=== PATIENT | male | born 1940 | race Caucasian/White ===

== ENCOUNTER → 2023-10-05 | Emergency (ER) | payer OTHER ==
[~2023-10-05] MED LIST: DIAZEPAM 5 MG TABLET ONE; FENTANYL CITR 100 MCG/2 ML ONE; KETOROLAC 30 MG/ML INJ ONE; NA CHLORIDE 0.9% 1,000 ML ONE; NA CHLORIDE 0.9% 500 ML ONE; ONDANSETRON 4 MG/2 ML VIAL ONE; POTASSIUM 25 MEQ EFFERV TAB ONE; dexAMETHasone 10 MG/ML VIAL ONE
--- OUTSIDE RECORDS SUMMARY | 2023-10-05 11:03 | XMS REPORT | Continuity of Care Document ---
Author Name Unknown Address [address] [facility] [address] [place] [address] [facility] thconnect Address [address] [facility] [address] [place] [address] Care Team Providers Care Commercial Helicopter Pilot Name Role Phone Carly Croft Attending Clinician Unavailable SOL Attending Clinician Unavailable SHARI Attending Clinician Unavailable Bairon Velásquez Attending Clinician [phone] Carly Croft Admitting Clinician Unavailable SOL Admitting Clinician Unavailable SHARI Admitting Clinician Unavailable Payers Payer Name Policy Type Policy Number Effective Date Expirati on Date Source [employer] (MEDICARE REPLACEMENT HMO) [id number] 2020 00:00:00 Problems Condition Name Condition Details Condition Category Status Onset Date Resolution Date Last Treatment Date Treating Clinician Comments Source Benign prostatic hyperplasi a with outflow obstructio n Benign Prostatic Hyperplasi a with Outflow Obstructio n Problem Active 2- [facility]: [facility] Dependent edema Dependent Edema Problem Active 2-05 00:00: 00 [facility] Long-term drug therapy Long-term Drug Therapy Problem Active 2-02 00[facility] Type 2 diabetes mellitus Type 2 Diabetes Mellitus Problem Active 5-15 00:00: 00 [facility] 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 Problem Active 8-05 00:00: 00 [facility] 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 Problem Active 805 00:00: 00 [facility] 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 Problem Active 8-05 00:00: 00 [facility] COVID-19 Covid-19 Problem Active 7 00:00: 00 [facility] Hyperglyce sia Hyperglyce sia Problem Active 2-03 00:00: 00 [facility] Hiatal hernia Hiatal Hernia Problem Active 6 00:00: 00 [facility] Hyperchole sterolemia Hyperchole sterolemia Problem Active 208 00:00: 00 [facility] Hypertensi ve disorder Hypertensi ve Disorder Problem Active 208 00:00: 00 [facility] Coronary arterioscl erosis Coronary Arterioscl erosis Problem Active 208 00:00: 00 [facility] Gastroesop hageal reflux disease Gastroesop hageal Reflux Disease Problem Active 208 00:00: 00 [facility] History of myocardial infarction History of Myocardial Infarction Problem Active 208 00:00: 00 [facility] History of heart valve repair History of Heart Valve Repair Problem Active 208 00:00: 00 [facility] Allergies, Adverse Reactions, Alerts Allergy Name Allergy Type Status Severity Reaction(s) Onset Date Inactive Date Treating Clinician Comments Source No Known Allergie s DA Active U 12-29 00:00: 00 [facility] No Known Allergie s DA Active U 12-29 00:00: 00 [facility] Social History Smoking Status Start Date Stop Date Source Heavy Tobacco Smoker [facility] Medications Ordered Medication Name Filled Medication Name Start Date Stop Date Current Medication? Ordering Clinician Indication Dosage Frequency Signature (SIG) Comments Components Source Kenalog 40 mg/mL suspension for injectionTa ke 2 mL by injection route. Kenalog 40 mg/mL suspension for injectionTa ke 2 mL by injection route. 2022-08 11:18: 27 No Kenalog 40 mg/mL suspension for injectionT nazario 2 mL by injection route. [facility] tamsulosin 0.4 mg capsule TAKE 1 CAPSULE BY MOUTH EVERY DAY IN THE EVENING tamsulosin 0.4 mg capsule TAKE 1 CAPSULE BY MOUTH EVERY DAY IN THE EVENING 2022-08 00:00: 00 No tamsulosin 0.4 mg capsule TAKE 1 CAPSULE BY MOUTH EVERY DAY IN THE EVENING [facility] tamsulosin 0.4 mg capsule TAKE 1 CAPSULE BY MOUTH EVERY DAY IN THE EVENING tamsulosin 0.4 mg capsule TAKE 1 CAPSULE BY MOUTH EVERY DAY IN THE EVENING 2022-08 00:00: 00 No tamsulosin 0.4 mg capsule TAKE 1 CAPSULE BY MOUTH EVERY DAY IN THE EVENING [facility] tamsulosin 0.4 mg capsule TAKE 1 CAPSULE BY MOUTH EVERY DAY IN THE EVENING tamsulosin 0.4 mg capsule TAKE 1 CAPSULE BY MOUTH EVERY DAY IN THE EVENING 2022-08 00:00: 00 No tamsulosin 0.4 mg capsule TAKE 1 CAPSULE BY MOUTH EVERY DAY IN THE EVENING [facility] tamsulosin 0.4 mg capsule TAKE 1 CAPSULE BY MOUTH EVERY DAY IN THE EVENING tamsulosin 0.4 mg capsule TAKE 1 CAPSULE BY MOUTH EVERY DAY IN THE EVENING 2022-08 00:00: 00 No tamsulosin 0.4 mg capsule TAKE 1 CAPSULE BY MOUTH EVERY DAY IN THE EVENING [facility] amlodipine 2.5 mg tablet TAKE 1 TABLET BY MOUTH BID PO amlodipine 2.5 mg tablet TAKE 1 TABLET BY MOUTH BID PO 12-16 00:00: 00 No amlodipine 2.5 mg tablet TAKE 1 TABLET BY MOUTH BID PO [facility] amlodipine 5 mg tablet TAKE 1 TABLET BY MOUTH TWICE A DAY amlodipine 5 mg tablet TAKE 1 TABLET BY MOUTH TWICE A DAY 2021-0 8-10 00:00: 00 No amlodipine 5 mg tablet TAKE 1 TABLET BY MOUTH TWICE A DAY [facility] amlodipine 5 mg tablet TAKE 1 TABLET BY MOUTH TWICE A DAY amlodipine 5 mg tablet TAKE 1 TABLET BY MOUTH TWICE A DAY 8- 00:00: 00 No amlodipine 5 mg tablet TAKE 1 TABLET BY MOUTH TWICE A DAY [facility] amlodipine 2.5 mg tablet TAKE 1 TABLET BY MOUTH EVERY DAY FOR 7 DAYS amlodipine 2.5 mg tablet TAKE 1 TABLET BY MOUTH EVERY DAY FOR 7 DAYS 01-10 00:00: 00 No amlodipine 2.5 mg tablet TAKE 1 TABLET BY MOUTH EVERY DAY FOR 7 DAYS [facility] carvedilol 6.25 mg tablet TAKE 1/2 TABLET BY MOUTH TWICE A DAY WITH FOOD carvedilol 6.25 mg tablet TAKE 1/2 TABLET BY MOUTH TWICE A DAY WITH FOOD 12-13 00:00: 00 No carvedilol 6.25 mg tablet TAKE 1/2 TABLET BY MOUTH TWICE A DAY WITH FOOD [facility] amlodipine 2.5 mg tablet TAKE 1 TABLET BY MOUTH BID PO amlodipine 2.5 mg tablet TAKE 1 TABLET BY MOUTH BID PO No amlodipine 2.5 mg tablet TAKE 1 TABLET BY MOUTH BID PO [facility] atorvastati n 80 mg tablet TAKE 1 TABLET BY MOUTH EVERY DAY atorvastati n 80 mg tablet TAKE 1 TABLET BY MOUTH EVERY DAY No atorvastat in 80 mg tablet TAKE 1 TABLET BY MOUTH EVERY DAY [facility] clopidogrel 75 mg tablet TAKE 1 TABLET BY MOUTH EVERY DAY clopidogrel 75 mg tablet TAKE 1 TABLET BY MOUTH EVERY DAY No clopidogre l 75 mg tablet TAKE 1 TABLET BY MOUTH EVERY DAY [facility] Fluzone High-Dose Quad 2020-21 (PF) 240 mcg/0.7 mL IM syringe PHARMACIST ADMINISTERE D IMMUNIZATIO N ADMINISTERE D AT TIME OF DISPENSING Fluzone High-Dose Quad 2020-21 (PF) 240 mcg/0.7 mL IM syringe PHARMACIST ADMINISTERE D IMMUNIZATIO N ADMINISTERE D AT TIME OF DISPENSING No Fluzone High-Dose Quad 2020-21 (PF) 240 mcg/0.7 mL IM syringe PHARMACIST ADMINISTER ED IMMUNIZATI ON ADMINISTER ED AT TIME OF DISPENSING [facility] losartan 100 mg-hydrochl orothiazide 25 mg tablet TAKE 1 TABLET BY MOUTH EVERY DAY losartan 100 mg-hydrochl orothiazide 25 mg tablet TAKE 1 TABLET BY MOUTH EVERY DAY No losartan 100 mg-hydroch lorothiazi de 25 mg tablet TAKE 1 TABLET BY MOUTH EVERY DAY [facility] nitroglycer in 0.4 mg sublingual tablet DISSOLVE ONE TABLET UNDER THE TONGUE EVERY 5 MINUTES NEEDED FOR CHEST PAIN. DO NOT EXCEED A TOTAL OF 3 DOSES IN 15 MINUTES nitroglycer in 0.4 mg sublingual tablet DISSOLVE ONE TABLET UNDER THE TONGUE EVERY 5 MINUTES NEEDED FOR CHEST PAIN. DO NOT EXCEED A TOTAL OF 3 DOSES IN 15 MINUTES No nitroglyce rin 0.4 mg sublingual tablet DISSOLVE ONE TABLET UNDER THE TONGUE EVERY 5 MINUTES NEEDED FOR CHEST PAIN. DO NOT EXCEED A TOTAL OF 3 DOSES IN 15 MINUTES [facility] omeprazole 20 mg capsule,del ayed release TAKE 1 CAPSULE BY MOUTH ONCE DAILY omeprazole 20 mg capsule,del ayed release TAKE 1 CAPSULE BY MOUTH ONCE DAILY No omeprazole 20 mg capsule,de layed release TAKE 1 CAPSULE BY MOUTH ONCE DAILY [facility] atorvastati n 80 mg tablet TAKE 1 TABLET BY MOUTH EVERY DAY atorvastati n 80 mg tablet TAKE 1 TABLET BY MOUTH EVERY DAY No atorvastat in 80 mg tablet TAKE 1 TABLET BY MOUTH EVERY DAY [facility] cyclobenzap rine 5 mg tablet Take 1 tablet twice a day by oral route as needed. cyclobenzap rine 5 mg tablet Take 1 tablet twice a day by oral route as needed. No 1 BID cyclobenza walt 5 mg tablet Take 1 tablet twice a day by oral route as needed. [facility] Eliquis 5 mg tablet Take 1 tablet twice a day by oral route. Eliquis 5 mg tablet Take 1 tablet twice a day by oral route. No 1 BID Eliquis 5 mg tablet Take 1 tablet twice a day by oral route. [facility] Fluzone High-Dose Quad 2020- (PF) 240 mcg/0.7 mL IM syringe PHARMACIST ADMINISTERE D IMMUNIZATIO N ADMINISTERE D AT TIME OF DISPENSING Fluzone High-Dose Quad (PF) 240 mcg/0.7 mL IM syringe PHARMACIST ADMINISTERE D IMMUNIZATIO N ADMINISTERE D AT TIME OF DISPENSING No Fluzone High-Dose Quad (PF) 240 mcg/0.7 mL IM syringe PHARMACIST ADMINISTER ED IMMUNIZATI ON ADMINISTER ED AT TIME OF DISPENSING [facility] losartan 100 mg-hydrochl orothiazide 25 mg tablet TAKE 1 TABLET BY MOUTH EVERY DAY losartan 100 mg-hydrochl orothiazide 25 mg tablet TAKE 1 TABLET BY MOUTH EVERY DAY No losartan 100 mg-hydroch lorothiazi de 25 mg tablet TAKE 1 TABLET BY MOUTH EVERY DAY [facility] nitroglycer in 0.4 mg sublingual tablet DISSOLVE ONE TABLET UNDER THE TONGUE EVERY 5 MINUTES NEEDED FOR CHEST PAIN. DO NOT EXCEED A TOTAL OF 3 DOSES IN 15 MINUTES nitroglycer in 0.4 mg sublingual tablet DISSOLVE ONE TABLET UNDER THE TONGUE EVERY 5 MINUTES NEEDED FOR CHEST PAIN. DO NOT EXCEED A TOTAL OF 3 DOSES IN 15 MINUTES No nitroglyce rin 0.4 mg sublingual tablet DISSOLVE ONE TABLET UNDER THE TONGUE EVERY 5 MINUTES NEEDED FOR CHEST PAIN. DO NOT EXCEED A TOTAL OF 3 DOSES IN 15 MINUTES [facility] omeprazole 20 mg capsule,del ayed release TAKE 1 CAPSULE BY MOUTH ONCE DAILY omeprazole 20 mg capsule,del ayed release TAKE 1 CAPSULE BY MOUTH ONCE DAILY No omeprazole 20 mg capsule,de layed release TAKE 1 CAPSULE BY MOUTH ONCE DAILY [facility] atorvastati n 80 mg tablet TAKE 1 TABLET BY MOUTH EVERY DAY atorvastati n 80 mg tablet TAKE 1 TABLET BY MOUTH EVERY DAY No atorvastat in 80 mg tablet TAKE 1 TABLET BY MOUTH EVERY DAY [facility] cyclobenzap rine 5 mg tablet Take 1 tablet twice a day by oral route as needed. cyclobenzap rine 5 mg tablet Take 1 tablet twice a day by oral route as needed. No 1 BID cyclobenza walt 5 mg tablet Take 1 tablet twice a day by oral route as needed. [facility] Eliquis 5 mg tablet Take 1 tablet twice a day by oral route. Eliquis 5 mg tablet Take 1 tablet twice a day by oral route. No 1 BID Eliquis 5 mg tablet Take 1 tablet twice a day by oral route. [facility] Fluzone High-Dose Quad (PF) 240 mcg/0.7 mL IM syringe PHARMACIST ADMINISTERE D IMMUNIZATIO N ADMINISTERE D AT TIME OF DISPENSING Fluzone High-Dose Quad (PF) 240 mcg/0.7 mL IM syringe PHARMACIST ADMINISTERE D IMMUNIZATIO N ADMINISTERE D AT TIME OF DISPENSING No Fluzone High-Dose Quad (PF) 240 mcg/0.7 mL IM syringe PHARMACIST ADMINISTER ED IMMUNIZATI ON ADMINISTER ED AT TIME OF DISPENSING [facility] losartan 100 mg-hydrochl orothiazide 25 mg tablet TAKE 1 TABLET BY MOUTH EVERY DAY losartan 100 mg-hydrochl orothiazide 25 mg tablet TAKE 1 TABLET BY MOUTH EVERY DAY No losartan 100 mg-hydroch lorothiazi de 25 mg tablet TAKE 1 TABLET BY MOUTH EVERY DAY [facility] nitroglycer in 0.4 mg sublingual tablet DISSOLVE ONE TABLET UNDER THE TONGUE EVERY 5 MINUTES NEEDED FOR CHEST PAIN. DO NOT EXCEED A TOTAL OF 3 DOSES IN 15 MINUTES nitroglycer in 0.4 mg sublingual tablet DISSOLVE ONE TABLET UNDER THE TONGUE EVERY 5 MINUTES NEEDED FOR CHEST PAIN. DO NOT EXCEED A TOTAL OF 3 DOSES IN 15 MINUTES No nitroglyce rin 0.4 mg sublingual tablet DISSOLVE ONE TABLET UNDER THE TONGUE EVERY 5 MINUTES NEEDED FOR CHEST PAIN. DO NOT EXCEED A TOTAL OF 3 DOSES IN 15 MINUTES [facility] omeprazole 20 mg capsule,del ayed release TAKE 1 CAPSULE BY MOUTH ONCE DAILY omeprazole 20 mg capsule,del ayed release TAKE 1 CAPSULE BY MOUTH ONCE DAILY No omeprazole 20 mg capsule,de layed release TAKE 1 CAPSULE BY MOUTH ONCE DAILY [facility] amlodipine 5 mg tablet TAKE 1 TABLET BY MOUTH TWICE A DAY amlodipine 5 mg tablet TAKE 1 TABLET BY MOUTH TWICE A DAY No amlodipine 5 mg tablet TAKE 1 TABLET BY MOUTH TWICE A DAY [facility] atorvastati n 80 mg tablet TAKE 1 TABLET BY MOUTH EVERY DAY atorvastati n 80 mg tablet TAKE 1 TABLET BY MOUTH EVERY DAY No atorvastat in 80 mg tablet TAKE 1 TABLET BY MOUTH EVERY DAY [facility] Eliquis 5 mg tablet TAKE 1 TABLET BY MOUTH TWICE A DAY Eliquis 5 mg tablet TAKE 1 TABLET BY MOUTH TWICE A DAY No Eliquis 5 mg tablet TAKE 1 TABLET BY MOUTH TWICE A DAY [facility] Fluzone High-Dose Quad 2019-21 (PF) 240 mcg/0.7 mL IM syringe PHARMACIST ADMINISTERE D IMMUNIZATIO N ADMINISTERE D AT TIME OF DISPENSING Fluzone High-Dose Quad 2019-21 (PF) 240 mcg/0.7 mL IM syringe PHARMACIST ADMINISTERE D IMMUNIZATIO N ADMINISTERE D AT TIME OF DISPENSING No Fluzone High-Dose Quad 2019- (PF) 240 mcg/0.7 mL IM syringe PHARMACIST ADMINISTER ED IMMUNIZATI ON ADMINISTER ED AT TIME OF DISPENSING [facility] losartan 100 mg-hydrochl orothiazide 25 mg tablet TAKE 1 TABLET BY MOUTH EVERY DAY losartan 100 mg-hydrochl orothiazide 25 mg tablet TAKE 1 TABLET BY MOUTH EVERY DAY No losartan 100 mg-hydroch lorothiazi de 25 mg tablet TAKE 1 TABLET BY MOUTH EVERY DAY [facility] nitroglycer in 0.4 mg sublingual tablet DISSOLVE ONE TABLET UNDER THE TONGUE EVERY 5 MINUTES NEEDED FOR CHEST PAIN. DO NOT EXCEED A TOTAL OF 3 DOSES IN 15 MINUTES nitroglycer in 0.4 mg sublingual tablet DISSOLVE ONE TABLET UNDER THE TONGUE EVERY 5 MINUTES NEEDED FOR CHEST PAIN. DO NOT EXCEED A TOTAL OF 3 DOSES IN 15 MINUTES No nitroglyce rin 0.4 mg sublingual tablet DISSOLVE ONE TABLET UNDER THE TONGUE EVERY 5 MINUTES NEEDED FOR CHEST PAIN. DO NOT EXCEED A TOTAL OF 3 DOSES IN 15 MINUTES [facility] omeprazole 20 mg capsule,del ayed release TAKE 1 CAPSULE BY MOUTH ONCE DAILY omeprazole 20 mg capsule,del ayed release TAKE 1 CAPSULE BY MOUTH ONCE DAILY No omeprazole 20 mg capsule,de layed release TAKE 1 CAPSULE BY MOUTH ONCE DAILY [facility] amlodipine 5 mg tablet TAKE 1 TABLET BY MOUTH TWICE A DAY amlodipine 5 mg tablet TAKE 1 TABLET BY MOUTH TWICE A DAY No amlodipine 5 mg tablet TAKE 1 TABLET BY MOUTH TWICE A DAY [facility] atorvastati n 80 mg tablet TAKE 1 TABLET BY MOUTH EVERY DAY atorvastati n 80 mg tablet TAKE 1 TABLET BY MOUTH EVERY DAY No atorvastat in 80 mg tablet TAKE 1 TABLET BY MOUTH EVERY DAY [facility] azithromyci n 250 mg tablet TAKE 2 TABLETS (500 MG) BY ORAL ROUTE ONCE DAILY FOR 1 DAY THEN 1 TABLET (250 MG) BY ORAL ROUTE ONCE DAILY FOR 4 DAYS azithromyci n 250 mg tablet TAKE 2 TABLETS (500 MG) BY ORAL ROUTE ONCE DAILY FOR 1 DAY THEN 1 TABLET (250 MG) BY ORAL ROUTE ONCE DAILY FOR 4 DAYS No azithromyc in 250 mg tablet TAKE 2 TABLETS (500 MG) BY ORAL ROUTE ONCE DAILY FOR 1 DAY THEN 1 TABLET (250 MG) BY ORAL ROUTE ONCE DAILY FOR 4 DAYS [facility] benzonatate 200 mg capsule Take 1 capsule 3 times a day by oral route. benzonatate 200 mg capsule Take 1 capsule 3 times a day by oral route. No 1capsul e(s) TID benzonatat e 200 mg capsule Take 1 capsule 3 times a day by oral route. [facility] clopidogrel 75 mg tablet TAKE 1 TABLET BY MOUTH EVERY DAY clopidogrel 75 mg tablet TAKE 1 TABLET BY MOUTH EVERY DAY No clopidogre l 75 mg tablet TAKE 1 TABLET BY MOUTH EVERY DAY [facility] Eliquis 5 mg tablet TAKE 1 TABLET BY MOUTH TWICE A DAY Eliquis 5 mg tablet TAKE 1 TABLET BY MOUTH TWICE A DAY No Eliquis 5 mg tablet TAKE 1 TABLET BY MOUTH TWICE A DAY [facility] losartan 100 mg-hydrochl orothiazide 25 mg tablet TAKE 1 TABLET BY MOUTH EVERY DAY losartan 100 mg-hydrochl orothiazide 25 mg tablet TAKE 1 TABLET BY MOUTH EVERY DAY No losartan 100 mg-hydroch lorothiazi de 25 mg tablet TAKE 1 TABLET BY MOUTH EVERY DAY [facility] nitroglycer in 0.4 mg sublingual tablet DISSOLVE ONE TABLET UNDER THE TONGUE EVERY 5 MINUTES NEEDED FOR CHEST PAIN. DO NOT EXCEED A TOTAL OF 3 DOSES IN 15 MINUTES nitroglycer in 0.4 mg sublingual tablet DISSOLVE ONE TABLET UNDER THE TONGUE EVERY 5 MINUTES NEEDED FOR CHEST PAIN. DO NOT EXCEED A TOTAL OF 3 DOSES IN 15 MINUTES No nitroglyce rin 0.4 mg sublingual tablet DISSOLVE ONE TABLET UNDER THE TONGUE EVERY 5 MINUTES NEEDED FOR CHEST PAIN. DO NOT EXCEED A TOTAL OF 3 DOSES IN 15 MINUTES [facility] omeprazole 20 mg capsule,del ayed release TAKE 1 CAPSULE BY MOUTH ONCE DAILY omeprazole 20 mg capsule,del ayed release TAKE 1 CAPSULE BY MOUTH ONCE DAILY No omeprazole 20 mg capsule,de layed release TAKE 1 CAPSULE BY MOUTH ONCE DAILY [facility] Paxlovid 300 mg (150 mg x 2)-100 mg tablets in a dose pack (EUA) As directed on Dose Pack Paxlovid 300 mg (150 mg x 2)-100 mg tablets in a dose pack (EUA) As directed on Dose Pack No Paxlovid 300 mg (150 mg x 2)-100 mg tablets in a dose pack (EUA) As directed on Dose Pack [facility] prednisone 20 mg tablet TAKE 2 TABLETS (40 MG) BY ORAL ROUTE ONCE DAILY FOR 1 DAY THEN 1 TABLET (20 MG) BY ORAL ROUTE ONCE DAILY FOR 4 DAYS prednisone 20 mg tablet TAKE 2 TABLETS (40 MG) BY ORAL ROUTE ONCE DAILY FOR 1 DAY THEN 1 TABLET (20 MG) BY ORAL ROUTE ONCE DAILY FOR 4 DAYS No prednisone 20 mg tablet TAKE 2 TABLETS (40 MG) BY ORAL ROUTE ONCE DAILY FOR 1 DAY THEN 1 TABLET (20 MG) BY ORAL ROUTE ONCE DAILY FOR 4 DAYS [facility] amlodipine 5 mg tablet TAKE 1 TABLET BY MOUTH TWICE A DAY amlodipine 5 mg tablet TAKE 1 TABLET BY MOUTH TWICE A DAY No amlodipine 5 mg tablet TAKE 1 TABLET BY MOUTH TWICE A DAY [facility] atorvastati n 80 mg tablet TAKE 1 TABLET BY MOUTH EVERY DAY atorvastati n 80 mg tablet TAKE 1 TABLET BY MOUTH EVERY DAY No atorvastat in 80 mg tablet TAKE 1 TABLET BY MOUTH EVERY DAY [facility] clopidogrel 75 mg tablet TAKE 1 TABLET BY MOUTH EVERY DAY clopidogrel 75 mg tablet TAKE 1 TABLET BY MOUTH EVERY DAY No clopidogre l 75 mg tablet TAKE 1 TABLET BY MOUTH EVERY DAY [facility] Eliquis 5 mg tablet TAKE 1 TABLET BY MOUTH TWICE A DAY Eliquis 5 mg tablet TAKE 1 TABLET BY MOUTH TWICE A DAY No Eliquis 5 mg tablet TAKE 1 TABLET BY MOUTH TWICE A DAY [facility] losartan 100 mg-hydrochl orothiazide 25 mg tablet TAKE 1 TABLET BY MOUTH EVERY DAY losartan 100 mg-hydrochl orothiazide 25 mg tablet TAKE 1 TABLET BY MOUTH EVERY DAY No losartan 100 mg-hydroch lorothiazi de 25 mg tablet TAKE 1 TABLET BY MOUTH EVERY DAY [facility] nitroglycer in 0.4 mg sublingual tablet DISSOLVE ONE TABLET UNDER THE TONGUE EVERY 5 MINUTES NEEDED FOR CHEST PAIN. DO NOT EXCEED A TOTAL OF 3 DOSES IN 15 MINUTES nitroglycer in 0.4 mg sublingual tablet DISSOLVE ONE TABLET UNDER THE TONGUE EVERY 5 MINUTES NEEDED FOR CHEST PAIN. DO NOT EXCEED A TOTAL OF 3 DOSES IN 15 MINUTES No nitroglyce rin 0.4 mg sublingual tablet DISSOLVE ONE TABLET UNDER THE TONGUE EVERY 5 MINUTES NEEDED FOR CHEST PAIN. DO NOT EXCEED A TOTAL OF 3 DOSES IN 15 MINUTES [facility] omeprazole 20 mg capsule,del ayed release TAKE 1 CAPSULE BY MOUTH ONCE DAILY omeprazole 20 mg capsule,del ayed release TAKE 1 CAPSULE BY MOUTH ONCE DAILY No omeprazole 20 mg capsule,de layed release TAKE 1 CAPSULE BY MOUTH ONCE DAILY [facility] amlodipine 5 mg tablet TAKE 1 TABLET BY MOUTH TWICE A DAY amlodipine 5 mg tablet TAKE 1 TABLET BY MOUTH TWICE A DAY No amlodipine 5 mg tablet TAKE 1 TABLET BY MOUTH TWICE A DAY [facility] atorvastati n 80 mg tablet TAKE 1 TABLET BY MOUTH EVERY DAY atorvastati n 80 mg tablet TAKE 1 TABLET BY MOUTH EVERY DAY No atorvastat in 80 mg tablet TAKE 1 TABLET BY MOUTH EVERY DAY [facility] clopidogrel 75 mg tablet TAKE 1 TABLET BY MOUTH EVERY DAY clopidogrel 75 mg tablet TAKE 1 TABLET BY MOUTH EVERY DAY No clopidogre l 75 mg tablet TAKE 1 TABLET BY MOUTH EVERY DAY [facility] Eliquis 5 mg tablet TAKE 1 TABLET BY MOUTH TWICE A DAY Eliquis 5 mg tablet TAKE 1 TABLET BY MOUTH TWICE A DAY No Eliquis 5 mg tablet TAKE 1 TABLET BY MOUTH TWICE A DAY [facility] losartan 100 mg-hydrochl orothiazide 25 mg tablet TAKE 1 TABLET BY MOUTH EVERY DAY losartan 100 mg-hydrochl orothiazide 25 mg tablet TAKE 1 TABLET BY MOUTH EVERY DAY No losartan 100 mg-hydroch lorothiazi de 25 mg tablet TAKE 1 TABLET BY MOUTH EVERY DAY [facility] nitroglycer in 0.4 mg sublingual tablet DISSOLVE ONE TABLET UNDER THE TONGUE EVERY 5 MINUTES NEEDED FOR CHEST PAIN. DO NOT EXCEED A TOTAL OF 3 DOSES IN 15 MINUTES nitroglycer in 0.4 mg sublingual tablet DISSOLVE ONE TABLET UNDER THE TONGUE EVERY 5 MINUTES NEEDED FOR CHEST PAIN. DO NOT EXCEED A TOTAL OF 3 DOSES IN 15 MINUTES No nitroglyce rin 0.4 mg sublingual tablet DISSOLVE ONE TABLET UNDER THE TONGUE EVERY 5 MINUTES NEEDED FOR CHEST PAIN. DO NOT EXCEED A TOTAL OF 3 DOSES IN 15 MINUTES [facility] omeprazole 20 mg capsule,del ayed release TAKE 1 CAPSULE BY MOUTH ONCE DAILY omeprazole 20 mg capsule,del ayed release TAKE 1 CAPSULE BY MOUTH ONCE DAILY No omeprazole 20 mg capsule,de layed release TAKE 1 CAPSULE BY MOUTH ONCE DAILY [facility] amlodipine 5 mg tablet TAKE 1 TABLET BY MOUTH TWICE A DAY amlodipine 5 mg tablet TAKE 1 TABLET BY MOUTH TWICE A DAY No amlodipine 5 mg tablet TAKE 1 TABLET BY MOUTH TWICE A DAY [facility] atorvastati n 80 mg tablet TAKE 1 TABLET BY MOUTH EVERY DAY atorvastati n 80 mg tablet TAKE 1 TABLET BY MOUTH EVERY DAY No atorvastat in 80 mg tablet TAKE 1 TABLET BY MOUTH EVERY DAY [facility] clopidogrel 75 mg tablet TAKE 1 TABLET BY MOUTH EVERY DAY clopidogrel 75 mg tablet TAKE 1 TABLET BY MOUTH EVERY DAY No clopidogre l 75 mg tablet TAKE 1 TABLET BY MOUTH EVERY DAY [facility] Eliquis 5 mg tablet TAKE 1 TABLET BY MOUTH TWICE A DAY Eliquis 5 mg tablet TAKE 1 TABLET BY MOUTH TWICE A DAY No Eliquis 5 mg tablet TAKE 1 TABLET BY MOUTH TWICE A DAY [facility] losartan 100 mg-hydrochl orothiazide 25 mg tablet TAKE 1 TABLET BY MOUTH EVERY DAY losartan 100 mg-hydrochl orothiazide 25 mg tablet TAKE 1 TABLET BY MOUTH EVERY DAY No losartan 100 mg-hydroch lorothiazi de 25 mg tablet TAKE 1 TABLET BY MOUTH EVERY DAY [facility] nitroglycer in 0.4 mg sublingual tablet DISSOLVE ONE TABLET UNDER THE TONGUE EVERY 5 MINUTES NEEDED FOR CHEST PAIN. DO NOT EXCEED A TOTAL OF 3 DOSES IN 15 MINUTES nitroglycer in 0.4 mg sublingual tablet DISSOLVE ONE TABLET UNDER THE TONGUE EVERY 5 MINUTES NEEDED FOR CHEST PAIN. DO NOT EXCEED A TOTAL OF 3 DOSES IN 15 MINUTES No nitroglyce rin 0.4 mg sublingual tablet DISSOLVE ONE TABLET UNDER THE TONGUE EVERY 5 MINUTES NEEDED FOR CHEST PAIN. DO NOT EXCEED A TOTAL OF 3 DOSES IN 15 MINUTES [facility] omeprazole 20 mg capsule,del ayed release TAKE 1 CAPSULE BY MOUTH ONCE DAILY omeprazole 20 mg capsule,del ayed release TAKE 1 CAPSULE BY MOUTH ONCE DAILY No omeprazole 20 mg capsule,de layed release TAKE 1 CAPSULE BY MOUTH ONCE DAILY [facility] amlodipine 5 mg tablet TAKE 1 TABLET BY MOUTH TWICE A DAY amlodipine 5 mg tablet TAKE 1 TABLET BY MOUTH TWICE A DAY No amlodipine 5 mg tablet TAKE 1 TABLET BY MOUTH TWICE A DAY [facility] atorvastati n 80 mg tablet TAKE 1 TABLET BY MOUTH EVERY DAY atorvastati n 80 mg tablet TAKE 1 TABLET BY MOUTH EVERY DAY No atorvastat in 80 mg tablet TAKE 1 TABLET BY MOUTH EVERY DAY [facility] clopidogrel 75 mg tablet TAKE 1 TABLET BY MOUTH EVERY DAY clopidogrel 75 mg tablet TAKE 1 TABLET BY MOUTH EVERY DAY No clopidogre l 75 mg tablet TAKE 1 TABLET BY MOUTH EVERY DAY [facility] Eliquis 5 mg tablet TAKE 1 TABLET BY MOUTH TWICE A DAY Eliquis 5 mg tablet TAKE 1 TABLET BY MOUTH TWICE A DAY No Eliquis 5 mg tablet TAKE 1 TABLET BY MOUTH TWICE A DAY [facility] losartan 100 mg-hydrochl orothiazide 25 mg tablet TAKE 1 TABLET BY MOUTH EVERY DAY losartan 100 mg-hydrochl orothiazide 25 mg tablet TAKE 1 TABLET BY MOUTH EVERY DAY No losartan 100 mg-hydroch lorothiazi de 25 mg tablet TAKE 1 TABLET BY MOUTH EVERY DAY [facility] nitroglycer in 0.4 mg sublingual tablet DISSOLVE ONE TABLET UNDER THE TONGUE EVERY 5 MINUTES NEEDED FOR CHEST PAIN. DO NOT EXCEED A TOTAL OF 3 DOSES IN 15 MINUTES nitroglycer in 0.4 mg sublingual tablet DISSOLVE ONE TABLET UNDER THE TONGUE EVERY 5 MINUTES NEEDED FOR CHEST PAIN. DO NOT EXCEED A TOTAL OF 3 DOSES IN 15 MINUTES No nitroglyce rin 0.4 mg sublingual tablet DISSOLVE ONE TABLET UNDER THE TONGUE EVERY 5 MINUTES NEEDED FOR CHEST PAIN. DO NOT EXCEED A TOTAL OF 3 DOSES IN 15 MINUTES [facility] omeprazole 20 mg capsule,del ayed release TAKE 1 CAPSULE BY MOUTH ONCE DAILY omeprazole 20 mg capsule,del ayed release TAKE 1 CAPSULE BY MOUTH ONCE DAILY No omeprazole 20 mg capsule,de layed release TAKE 1 CAPSULE BY MOUTH ONCE DAILY [facility] amlodipine 5 mg tablet TAKE 1 TABLET BY MOUTH ONCE A DAY amlodipine 5 mg tablet TAKE 1 TABLET BY MOUTH ONCE A DAY No amlodipine 5 mg tablet TAKE 1 TABLET BY MOUTH ONCE A DAY [facility] atorvastati n 80 mg tablet TAKE 1 TABLET BY MOUTH EVERY DAY atorvastati n 80 mg tablet TAKE 1 TABLET BY MOUTH EVERY DAY No atorvastat in 80 mg tablet TAKE 1 TABLET BY MOUTH EVERY DAY [facility] clopidogrel 75 mg tablet TAKE 1 TABLET BY MOUTH EVERY DAY clopidogrel 75 mg tablet TAKE 1 TABLET BY MOUTH EVERY DAY No clopidogre l 75 mg tablet TAKE 1 TABLET BY MOUTH EVERY DAY [facility] Eliquis 5 mg tablet TAKE 1 TABLET BY MOUTH TWICE A DAY Eliquis 5 mg tablet TAKE 1 TABLET BY MOUTH TWICE A DAY No Eliquis 5 mg tablet TAKE 1 TABLET BY MOUTH TWICE A DAY [facility] losartan 100 mg-hydrochl orothiazide 25 mg tablet TAKE 1 TABLET BY MOUTH EVERY DAY losartan 100 mg-hydrochl orothiazide 25 mg tablet TAKE 1 TABLET BY MOUTH EVERY DAY No losartan 100 mg-hydroch lorothiazi de 25 mg tablet TAKE 1 TABLET BY MOUTH EVERY DAY [facility] nitroglycer in 0.4 mg sublingual tablet DISSOLVE ONE TABLET UNDER THE TONGUE EVERY 5 MINUTES NEEDED FOR CHEST PAIN. DO NOT EXCEED A TOTAL OF 3 DOSES IN 15 MINUTES nitroglycer in 0.4 mg sublingual tablet DISSOLVE ONE TABLET UNDER THE TONGUE EVERY 5 MINUTES NEEDED FOR CHEST PAIN. DO NOT EXCEED A TOTAL OF 3 DOSES IN 15 MINUTES No nitroglyce rin 0.4 mg sublingual tablet DISSOLVE ONE TABLET UNDER THE TONGUE EVERY 5 MINUTES NEEDED FOR CHEST PAIN. DO NOT EXCEED A TOTAL OF 3 DOSES IN 15 MINUTES [facility] omeprazole 20 mg capsule,del ayed release TAKE 1 CAPSULE BY MOUTH ONCE DAILY omeprazole 20 mg capsule,del ayed release TAKE 1 CAPSULE BY MOUTH ONCE DAILY No omeprazole 20 mg capsule,de layed release TAKE 1 CAPSULE BY MOUTH ONCE DAILY [facility] amlodipine 5 mg tablet TAKE 1 TABLET BY MOUTH ONCE A DAY amlodipine 5 mg tablet TAKE 1 TABLET BY MOUTH ONCE A DAY No amlodipine 5 mg tablet TAKE 1 TABLET BY MOUTH ONCE A DAY [facility] atorvastati n 80 mg tablet TAKE 1 TABLET BY MOUTH EVERY DAY atorvastati n 80 mg tablet TAKE 1 TABLET BY MOUTH EVERY DAY No atorvastat in 80 mg tablet TAKE 1 TABLET BY MOUTH EVERY DAY [facility] clopidogrel 75 mg tablet TAKE 1 TABLET BY MOUTH EVERY DAY clopidogrel 75 mg tablet TAKE 1 TABLET BY MOUTH EVERY DAY No clopidogre l 75 mg tablet TAKE 1 TABLET BY MOUTH EVERY DAY [facility] losartan 100 mg-hydrochl orothiazide 25 mg tablet TAKE 1 TABLET BY MOUTH EVERY DAY losartan 100 mg-hydrochl orothiazide 25 mg tablet TAKE 1 TABLET BY MOUTH EVERY DAY No losartan 100 mg-hydroch lorothiazi de 25 mg tablet TAKE 1 TABLET BY MOUTH EVERY DAY [facility] nitroglycer in 0.4 mg sublingual tablet DISSOLVE ONE TABLET UNDER THE TONGUE EVERY 5 MINUTES NEEDED FOR CHEST PAIN. DO NOT EXCEED A TOTAL OF 3 DOSES IN 15 MINUTES nitroglycer in 0.4 mg sublingual tablet DISSOLVE ONE TABLET UNDER THE TONGUE EVERY 5 MINUTES NEEDED FOR CHEST PAIN. DO NOT EXCEED A TOTAL OF 3 DOSES IN 15 MINUTES No nitroglyce rin 0.4 mg sublingual tablet DISSOLVE ONE TABLET UNDER THE TONGUE EVERY 5 MINUTES NEEDED FOR CHEST PAIN. DO NOT EXCEED A TOTAL OF 3 DOSES IN 15 MINUTES [facility] amlodipine 5 mg tablet TAKE 1 TABLET BY MOUTH TWICE A DAY amlodipine 5 mg tablet TAKE 1 TABLET BY MOUTH TWICE A DAY No amlodipine 5 mg tablet TAKE 1 TABLET BY MOUTH TWICE A DAY [facility] atorvastati n 80 mg tablet TAKE 1 TABLET BY MOUTH EVERY DAY atorvastati n 80 mg tablet TAKE 1 TABLET BY MOUTH EVERY DAY No atorvastat in 80 mg tablet TAKE 1 TABLET BY MOUTH EVERY DAY [facility] carvedilol 12.5 mg tablet TAKE 1 TABLET BY MOUTH TWICE A DAY WITH FOOD FOR 90 DAYS carvedilol 12.5 mg tablet TAKE 1 TABLET BY MOUTH TWICE A DAY WITH FOOD FOR 90 DAYS No carvedilol 12.5 mg tablet TAKE 1 TABLET BY MOUTH TWICE A DAY WITH FOOD FOR 90 DAYS [facility] clopidogrel 75 mg tablet TAKE 1 TABLET BY MOUTH EVERY DAY clopidogrel 75 mg tablet TAKE 1 TABLET BY MOUTH EVERY DAY No clopidogre l 75 mg tablet TAKE 1 TABLET BY MOUTH EVERY DAY [facility] cyclobenzap rine 5 mg tablet TAKE 1 TABLET BY MOUTH TWICE A DAY NEEDED FOR 10 DAYS cyclobenzap rine 5 mg tablet TAKE 1 TABLET BY MOUTH TWICE A DAY NEEDED FOR 10 DAYS No cyclobenza walt 5 mg tablet TAKE 1 TABLET BY MOUTH TWICE A DAY NEEDED FOR 10 DAYS [facility] losartan 100 mg-hydrochl orothiazide 25 mg tablet TAKE 1 TABLET BY MOUTH EVERY DAY losartan 100 mg-hydrochl orothiazide 25 mg tablet TAKE 1 TABLET BY MOUTH EVERY DAY No losartan 100 mg-hydroch lorothiazi de 25 mg tablet TAKE 1 TABLET BY MOUTH EVERY DAY [facility] nitroglycer in 0.4 mg sublingual tablet DISSOLVE ONE TABLET UNDER THE TONGUE EVERY 5 MINS NEEDED FOR CHEST PAIN MAX OF 3 DOSES IN 15 MINS nitroglycer in 0.4 mg sublingual tablet DISSOLVE ONE TABLET UNDER THE TONGUE EVERY 5 MINS NEEDED FOR CHEST PAIN MAX OF 3 DOSES IN 15 MINS No nitroglyce rin 0.4 mg sublingual tablet DISSOLVE ONE TABLET UNDER THE TONGUE EVERY 5 MINS NEEDED FOR CHEST PAIN MAX OF 3 DOSES IN 15 MINS [facility] sodium bicarbonate 325 mg tablet Take 1 tablet every day by oral route. sodium bicarbonate 325 mg tablet Take 1 tablet every day by oral route. No 1 Q1D sodium bicarbonat e 325 mg tablet Take 1 tablet every day by oral route. [facility] tamsulosin 0.4 mg capsule Take 1 capsule every day by oral route in the evening. tamsulosin 0.4 mg capsule Take 1 capsule every day by oral route in the evening. No 1capsul e(s) Q1D tamsulosin 0.4 mg capsule Take 1 capsule every day by oral route in the evening. [facility] amlodipine 5 mg tablet TAKE 1 TABLET BY MOUTH TWICE A DAY. Take second dose prn pending BP reading. amlodipine 5 mg tablet TAKE 1 TABLET BY MOUTH TWICE A DAY. Take second dose prn pending BP reading. No amlodipine 5 mg tablet TAKE 1 TABLET BY MOUTH TWICE A DAY. Take second dose prn pending BP reading. [facility] atorvastati n 80 mg tablet TAKE 1 TABLET BY MOUTH EVERY DAY atorvastati n 80 mg tablet TAKE 1 TABLET BY MOUTH EVERY DAY No atorvastat in 80 mg tablet TAKE 1 TABLET BY MOUTH EVERY DAY [facility] carvedilol 12.5 mg tablet TAKE 1 TABLET BY MOUTH TWICE A DAY WITH FOOD FOR 90 DAYS carvedilol 12.5 mg tablet TAKE 1 TABLET BY MOUTH TWICE A DAY WITH FOOD FOR 90 DAYS No carvedilol 12.5 mg tablet TAKE 1 TABLET BY MOUTH TWICE A DAY WITH FOOD FOR 90 DAYS [facility] clopidogrel 75 mg tablet TAKE 1 TABLET BY MOUTH EVERY DAY clopidogrel 75 mg tablet TAKE 1 TABLET BY MOUTH EVERY DAY No clopidogre l 75 mg tablet TAKE 1 TABLET BY MOUTH EVERY DAY [facility] cyclobenzap rine 5 mg tablet TAKE 1 TABLET BY MOUTH TWICE A DAY NEEDED FOR 10 DAYS cyclobenzap rine 5 mg tablet TAKE 1 TABLET BY MOUTH TWICE A DAY NEEDED FOR 10 DAYS No cyclobenza walt 5 mg tablet TAKE 1 TABLET BY MOUTH TWICE A DAY NEEDED FOR 10 DAYS [facility] losartan 100 mg-hydrochl orothiazide 25 mg tablet TAKE 1 TABLET BY MOUTH EVERY DAY losartan 100 mg-hydrochl orothiazide 25 mg tablet TAKE 1 TABLET BY MOUTH EVERY DAY No losartan 100 mg-hydroch lorothiazi de 25 mg tablet TAKE 1 TABLET BY MOUTH EVERY DAY [facility] nitroglycer in 0.4 mg sublingual tablet DISSOLVE ONE TABLET UNDER THE TONGUE EVERY 5 MINS NEEDED FOR CHEST PAIN MAX OF 3 DOSES IN 15 MINS nitroglycer in 0.4 mg sublingual tablet DISSOLVE ONE TABLET UNDER THE TONGUE EVERY 5 MINS NEEDED FOR CHEST PAIN MAX OF 3 DOSES IN 15 MINS No nitroglyce rin 0.4 mg sublingual tablet DISSOLVE ONE TABLET UNDER THE TONGUE EVERY 5 MINS NEEDED FOR CHEST PAIN MAX OF 3 DOSES IN 15 MINS [facility] sodium bicarbonate 325 mg tablet TAKE 1 TABLET BY MOUTH EVERY DAY sodium bicarbonate 325 mg tablet TAKE 1 TABLET BY MOUTH EVERY DAY No sodium bicarbonat e 325 mg tablet TAKE 1 TABLET BY MOUTH EVERY DAY [facility] amlodipine 5 mg tablet TAKE 1 TABLET BY MOUTH TWICE A DAY. Take second dose prn pending BP reading. amlodipine 5 mg tablet TAKE 1 TABLET BY MOUTH TWICE A DAY. Take second dose prn pending BP reading. No amlodipine 5 mg tablet TAKE 1 TABLET BY MOUTH TWICE A DAY. Take second dose prn pending BP reading. [facility] atorvastati n 80 mg tablet TAKE 1 TABLET BY MOUTH EVERY DAY atorvastati n 80 mg tablet TAKE 1 TABLET BY MOUTH EVERY DAY No atorvastat in 80 mg tablet TAKE 1 TABLET BY MOUTH EVERY DAY [facility] carvedilol 12.5 mg tablet TAKE 1 TABLET BY MOUTH TWICE A DAY WITH FOOD FOR 90 DAYS carvedilol 12.5 mg tablet TAKE 1 TABLET BY MOUTH TWICE A DAY WITH FOOD FOR 90 DAYS No carvedilol 12.5 mg tablet TAKE 1 TABLET BY MOUTH TWICE A DAY WITH FOOD FOR 90 DAYS [facility] clopidogrel 75 mg tablet TAKE 1 TABLET BY MOUTH EVERY DAY clopidogrel 75 mg tablet TAKE 1 TABLET BY MOUTH EVERY DAY No clopidogre l 75 mg tablet TAKE 1 TABLET BY MOUTH EVERY DAY [facility] cyclobenzap rine 5 mg tablet TAKE 1 TABLET BY MOUTH TWICE A DAY NEEDED FOR 10 DAYS cyclobenzap rine 5 mg tablet TAKE 1 TABLET BY MOUTH TWICE A DAY NEEDED FOR 10 DAYS No cyclobenza walt 5 mg tablet TAKE 1 TABLET BY MOUTH TWICE A DAY NEEDED FOR 10 DAYS [facility] losartan 100 mg-hydrochl orothiazide 25 mg tablet TAKE 1 TABLET BY MOUTH EVERY DAY losartan 100 mg-hydrochl orothiazide 25 mg tablet TAKE 1 TABLET BY MOUTH EVERY DAY No losartan 100 mg-hydroch lorothiazi de 25 mg tablet TAKE 1 TABLET BY MOUTH EVERY DAY [facility] nitroglycer in 0.4 mg sublingual tablet DISSOLVE ONE TABLET UNDER THE TONGUE EVERY 5 MINS NEEDED FOR CHEST PAIN MAX OF 3 DOSES IN 15 MINS nitroglycer in 0.4 mg sublingual tablet DISSOLVE ONE TABLET UNDER THE TONGUE EVERY 5 MINS NEEDED FOR CHEST PAIN MAX OF 3 DOSES IN 15 MINS No nitroglyce rin 0.4 mg sublingual tablet DISSOLVE ONE TABLET UNDER THE TONGUE EVERY 5 MINS NEEDED FOR CHEST PAIN MAX OF 3 DOSES IN 15 MINS [facility] sodium bicarbonate 325 mg tablet TAKE 1 TABLET BY MOUTH EVERY DAY sodium bicarbonate 325 mg tablet TAKE 1 TABLET BY MOUTH EVERY DAY No sodium bicarbonat e 325 mg tablet TAKE 1 TABLET BY MOUTH EVERY DAY [facility] amlodipine 5 mg tablet TAKE 1 TABLET BY MOUTH TWICE A DAY. Take second dose prn pending BP reading. amlodipine 5 mg tablet TAKE 1 TABLET BY MOUTH TWICE A DAY. Take second dose prn pending BP reading. No amlodipine 5 mg tablet TAKE 1 TABLET BY MOUTH TWICE A DAY. Take second dose prn pending BP reading. [facility] atorvastati n 80 mg tablet TAKE 1 TABLET BY MOUTH EVERY DAY atorvastati n 80 mg tablet TAKE 1 TABLET BY MOUTH EVERY DAY No atorvastat in 80 mg tablet TAKE 1 TABLET BY MOUTH EVERY DAY [facility] carvedilol 12.5 mg tablet TAKE 1 TABLET BY MOUTH TWICE A DAY WITH FOOD FOR 90 DAYS carvedilol 12.5 mg tablet TAKE 1 TABLET BY MOUTH TWICE A DAY WITH FOOD FOR 90 DAYS No carvedilol 12.5 mg tablet TAKE 1 TABLET BY MOUTH TWICE A DAY WITH FOOD FOR 90 DAYS [facility] clopidogrel 75 mg tablet TAKE 1 TABLET BY MOUTH EVERY DAY clopidogrel 75 mg tablet TAKE 1 TABLET BY MOUTH EVERY DAY No clopidogre l 75 mg tablet TAKE 1 TABLET BY MOUTH EVERY DAY [facility] cyclobenzap rine 5 mg tablet TAKE 1 TABLET BY MOUTH TWICE A DAY NEEDED FOR 10 DAYS cyclobenzap rine 5 mg tablet TAKE 1 TABLET BY MOUTH TWICE A DAY NEEDED FOR 10 DAYS No cyclobenza walt 5 mg tablet TAKE 1 TABLET BY MOUTH TWICE A DAY NEEDED FOR 10 DAYS [facility] losartan 100 mg-hydrochl orothiazide 25 mg tablet TAKE 1 TABLET BY MOUTH EVERY DAY losartan 100 mg-hydrochl orothiazide 25 mg tablet TAKE 1 TABLET BY MOUTH EVERY DAY No losartan 100 mg-hydroch lorothiazi de 25 mg tablet TAKE 1 TABLET BY MOUTH EVERY DAY [facility] nitroglycer in 0.4 mg sublingual tablet DISSOLVE ONE TABLET UNDER THE TONGUE EVERY 5 MINS NEEDED FOR CHEST PAIN MAX OF 3 DOSES IN 15 MINS nitroglycer in 0.4 mg sublingual tablet DISSOLVE ONE TABLET UNDER THE TONGUE EVERY 5 MINS NEEDED FOR CHEST PAIN MAX OF 3 DOSES IN 15 MINS No nitroglyce rin 0.4 mg sublingual tablet DISSOLVE ONE TABLET UNDER THE TONGUE EVERY 5 MINS NEEDED FOR CHEST PAIN MAX OF 3 DOSES IN 15 MINS [facility] sodium bicarbonate 325 mg tablet TAKE 1 TABLET BY MOUTH EVERY DAY sodium bicarbonate 325 mg tablet TAKE 1 TABLET BY MOUTH EVERY DAY No sodium bicarbonat e 325 mg tablet TAKE 1 TABLET BY MOUTH EVERY DAY [facility] amlodipine 5 mg tablet TAKE 1 TABLET BY MOUTH TWICE A DAY amlodipine 5 mg tablet TAKE 1 TABLET BY MOUTH TWICE A DAY No amlodipine 5 mg tablet TAKE 1 TABLET BY MOUTH TWICE A DAY [facility] atorvastati n 80 mg tablet TAKE 1 TABLET BY MOUTH EVERY DAY atorvastati n 80 mg tablet TAKE 1 TABLET BY MOUTH EVERY DAY No atorvastat in 80 mg tablet TAKE 1 TABLET BY MOUTH EVERY DAY [facility] carvedilol 12.5 mg tablet TAKE 1 TABLET BY MOUTH TWICE A DAY WITH FOOD FOR 90 DAYS carvedilol 12.5 mg tablet TAKE 1 TABLET BY MOUTH TWICE A DAY WITH FOOD FOR 90 DAYS No carvedilol 12.5 mg tablet TAKE 1 TABLET BY MOUTH TWICE A DAY WITH FOOD FOR 90 DAYS [facility] clopidogrel 75 mg tablet TAKE 1 TABLET BY MOUTH EVERY DAY clopidogrel 75 mg tablet TAKE 1 TABLET BY MOUTH EVERY DAY No clopidogre l 75 mg tablet TAKE 1 TABLET BY MOUTH EVERY DAY [facility] cyclobenzap rine 5 mg tablet TAKE 1 TABLET BY MOUTH TWICE A DAY NEEDED FOR 10 DAYS cyclobenzap rine 5 mg tablet TAKE 1 TABLET BY MOUTH TWICE A DAY NEEDED FOR 10 DAYS No cyclobenza walt 5 mg tablet TAKE 1 TABLET BY MOUTH TWICE A DAY NEEDED FOR 10 DAYS [facility] Kenalog 40 mg/mL suspension for injection Take 2 mL by injection route. Kenalog 40 mg/mL suspension for injection Take 2 mL by injection route. No 2mL Kenalog 40 mg/mL suspension for injection Take 2 mL by injection route. [facility] losartan 100 mg-hydrochl orothiazide 25 mg tablet TAKE 1 TABLET BY MOUTH EVERY DAY losartan 100 mg-hydrochl orothiazide 25 mg tablet TAKE 1 TABLET BY MOUTH EVERY DAY No losartan 100 mg-hydroch lorothiazi de 25 mg tablet TAKE 1 TABLET BY MOUTH EVERY DAY [facility] nitroglycer in 0.4 mg sublingual tablet DISSOLVE ONE TABLET UNDER THE TONGUE EVERY 5 MINS NEEDED FOR CHEST PAIN MAX OF 3 DOSES IN 15 MINS nitroglycer in 0.4 mg sublingual tablet DISSOLVE ONE TABLET UNDER THE TONGUE EVERY 5 MINS NEEDED FOR CHEST PAIN MAX OF 3 DOSES IN 15 MINS No nitroglyce rin 0.4 mg sublingual tablet DISSOLVE ONE TABLET UNDER THE TONGUE EVERY 5 MINS NEEDED FOR CHEST PAIN MAX OF 3 DOSES IN 15 MINS [facility] sodium bicarbonate 325 mg tablet TAKE 1 TABLET BY MOUTH EVERY DAY sodium bicarbonate 325 mg tablet TAKE 1 TABLET BY MOUTH EVERY DAY No sodium bicarbonat e 325 mg tablet TAKE 1 TABLET BY MOUTH EVERY DAY [facility] amlodipine 5 mg tablet TAKE 1 TABLET BY MOUTH TWICE A DAY amlodipine 5 mg tablet TAKE 1 TABLET BY MOUTH TWICE A DAY No amlodipine 5 mg tablet TAKE 1 TABLET BY MOUTH TWICE A DAY [facility] atorvastati n 80 mg tablet TAKE 1 TABLET BY MOUTH EVERY DAY atorvastati n 80 mg tablet TAKE 1 TABLET BY MOUTH EVERY DAY No atorvastat in 80 mg tablet TAKE 1 TABLET BY MOUTH EVERY DAY [facility] carvedilol 12.5 mg tablet TAKE 1 TABLET BY MOUTH TWICE A DAY WITH FOOD FOR 90 DAYS carvedilol 12.5 mg tablet TAKE 1 TABLET BY MOUTH TWICE A DAY WITH FOOD FOR 90 DAYS No carvedilol 12.5 mg tablet TAKE 1 TABLET BY MOUTH TWICE A DAY WITH FOOD FOR 90 DAYS [facility] clopidogrel 75 mg tablet TAKE 1 TABLET BY MOUTH EVERY DAY clopidogrel 75 mg tablet TAKE 1 TABLET BY MOUTH EVERY DAY No clopidogre l 75 mg tablet TAKE 1 TABLET BY MOUTH EVERY DAY [facility] cyclobenzap rine 5 mg tablet TAKE 1 TABLET BY MOUTH TWICE A DAY NEEDED FOR 10 DAYS cyclobenzap rine 5 mg tablet TAKE 1 TABLET BY MOUTH TWICE A DAY NEEDED FOR 10 DAYS No cyclobenza walt 5 mg tablet TAKE 1 TABLET BY MOUTH TWICE A DAY NEEDED FOR 10 DAYS [facility] Kenalog 40 mg/mL suspension for injection Take 2 mL by injection route. Kenalog 40 mg/mL suspension for injection Take 2 mL by injection route. No 2mL Kenalog 40 mg/mL suspension for injection Take 2 mL by injection route. [facility] losartan 100 mg-hydrochl orothiazide 25 mg tablet TAKE 1 TABLET BY MOUTH EVERY DAY losartan 100 mg-hydrochl orothiazide 25 mg tablet TAKE 1 TABLET BY MOUTH EVERY DAY No losartan 100 mg-hydroch lorothiazi de 25 mg tablet TAKE 1 TABLET BY MOUTH EVERY DAY [facility] nitroglycer in 0.4 mg sublingual tablet DISSOLVE ONE TABLET UNDER THE TONGUE EVERY 5 MINS NEEDED FOR CHEST PAIN MAX OF 3 DOSES IN 15 MINS nitroglycer in 0.4 mg sublingual tablet DISSOLVE ONE TABLET UNDER THE TONGUE EVERY 5 MINS NEEDED FOR CHEST PAIN MAX OF 3 DOSES IN 15 MINS No nitroglyce rin 0.4 mg sublingual tablet DISSOLVE ONE TABLET UNDER THE TONGUE EVERY 5 MINS NEEDED FOR CHEST PAIN MAX OF 3 DOSES IN 15 MINS [facility] sodium bicarbonate 325 mg tablet TAKE 1 TABLET BY MOUTH EVERY DAY sodium bicarbonate 325 mg tablet TAKE 1 TABLET BY MOUTH EVERY DAY No sodium bicarbonat e 325 mg tablet TAKE 1 TABLET BY MOUTH EVERY DAY [facility] tamsulosin 0.4 mg capsule Take 1 capsule every day by oral route in the evening. tamsulosin 0.4 mg capsule Take 1 capsule every day by oral route in the evening. No 1capsul e(s) Q1D tamsulosin 0.4 mg capsule Take 1 capsule every day by oral route in the evening. [facility] atorvastati n 80 mg tablet TAKE 1 TABLET BY MOUTH EVERY DAY atorvastati n 80 mg tablet TAKE 1 TABLET BY MOUTH EVERY DAY No atorvastat in 80 mg tablet TAKE 1 TABLET BY MOUTH EVERY DAY [facility] clopidogrel 75 mg tablet TAKE 1 TABLET BY MOUTH EVERY DAY clopidogrel 75 mg tablet TAKE 1 TABLET BY MOUTH EVERY DAY No clopidogre l 75 mg tablet TAKE 1 TABLET BY MOUTH EVERY DAY [facility] Fluzone High-Dose Quad 2019- (PF) 240 mcg/0.7 mL IM syringe PHARMACIST ADMINISTERE D IMMUNIZATIO N ADMINISTERE D AT TIME OF DISPENSING Fluzone High-Dose Quad 2019- (PF) 240 mcg/0.7 mL IM syringe PHARMACIST ADMINISTERE D IMMUNIZATIO N ADMINISTERE D AT TIME OF DISPENSING No Fluzone High-Dose Quad (PF) 240 mcg/0.7 mL IM syringe PHARMACIST ADMINISTER ED IMMUNIZATI ON ADMINISTER ED AT TIME OF DISPENSING [facility] losartan 100 mg-hydrochl orothiazide 25 mg tablet TAKE 1 TABLET BY MOUTH EVERY DAY losartan 100 mg-hydrochl orothiazide 25 mg tablet TAKE 1 TABLET BY MOUTH EVERY DAY No losartan 100 mg-hydroch lorothiazi de 25 mg tablet TAKE 1 TABLET BY MOUTH EVERY DAY [facility] nitroglycer in 0.4 mg sublingual tablet DISSOLVE ONE TABLET UNDER THE TONGUE EVERY 5 MINUTES NEEDED FOR CHEST PAIN. DO NOT EXCEED A TOTAL OF 3 DOSES IN 15 MINUTES nitroglycer in 0.4 mg sublingual tablet DISSOLVE ONE TABLET UNDER THE TONGUE EVERY 5 MINUTES NEEDED FOR CHEST PAIN. DO NOT EXCEED A TOTAL OF 3 DOSES IN 15 MINUTES No nitroglyce rin 0.4 mg sublingual tablet DISSOLVE ONE TABLET UNDER THE TONGUE EVERY 5 MINUTES NEEDED FOR CHEST PAIN. DO NOT EXCEED A TOTAL OF 3 DOSES IN 15 MINUTES [facility] omeprazole 20 mg capsule,del ayed release TAKE 1 CAPSULE BY MOUTH ONCE DAILY omeprazole 20 mg capsule,del ayed release TAKE 1 CAPSULE BY MOUTH ONCE DAILY No omeprazole 20 mg capsule,de layed release TAKE 1 CAPSULE BY MOUTH ONCE DAILY [facility] atorvastati n 80 mg tablet TAKE 1 TABLET BY MOUTH EVERY DAY atorvastati n 80 mg tablet TAKE 1 TABLET BY MOUTH EVERY DAY No atorvastat in 80 mg tablet TAKE 1 TABLET BY MOUTH EVERY DAY [facility] clopidogrel 75 mg tablet TAKE 1 TABLET BY MOUTH EVERY DAY clopidogrel 75 mg tablet TAKE 1 TABLET BY MOUTH EVERY DAY No clopidogre l 75 mg tablet TAKE 1 TABLET BY MOUTH EVERY DAY [facility] Fluzone High-Dose Quad 2019-21 (PF) 240 mcg/0.7 mL IM syringe PHARMACIST ADMINISTERE D IMMUNIZATIO N ADMINISTERE D AT TIME OF DISPENSING Fluzone High-Dose Quad 2019-21 (PF) 240 mcg/0.7 mL IM syringe PHARMACIST ADMINISTERE D IMMUNIZATIO N ADMINISTERE D AT TIME OF DISPENSING No Fluzone High-Dose Quad 2019-21 (PF) 240 mcg/0.7 mL IM syringe PHARMACIST ADMINISTER ED IMMUNIZATI ON ADMINISTER ED AT TIME OF DISPENSING [facility] losartan 100 mg-hydrochl orothiazide 25 mg tablet TAKE 1 TABLET BY MOUTH EVERY DAY losartan 100 mg-hydrochl orothiazide 25 mg tablet TAKE 1 TABLET BY MOUTH EVERY DAY No losartan 100 mg-hydroch lorothiazi de 25 mg tablet TAKE 1 TABLET BY MOUTH EVERY DAY [facility] nitroglycer in 0.4 mg sublingual tablet DISSOLVE ONE TABLET UNDER THE TONGUE EVERY 5 MINUTES NEEDED FOR CHEST PAIN. DO NOT EXCEED A TOTAL OF 3 DOSES IN 15 MINUTES nitroglycer in 0.4 mg sublingual tablet DISSOLVE ONE TABLET UNDER THE TONGUE EVERY 5 MINUTES NEEDED FOR CHEST PAIN. DO NOT EXCEED A TOTAL OF 3 DOSES IN 15 MINUTES No nitroglyce rin 0.4 mg sublingual tablet DISSOLVE ONE TABLET UNDER THE TONGUE EVERY 5 MINUTES NEEDED FOR CHEST PAIN. DO NOT EXCEED A TOTAL OF 3 DOSES IN 15 MINUTES [facility] omeprazole 20 mg capsule,del ayed release TAKE 1 CAPSULE BY MOUTH ONCE DAILY omeprazole 20 mg capsule,del ayed release TAKE 1 CAPSULE BY MOUTH ONCE DAILY No omeprazole 20 mg capsule,de layed release TAKE 1 CAPSULE BY MOUTH ONCE DAILY [facility] Immunizations Ordered Immunization Name Filled Immunization Name Date Status Comments Source SARS-COV-2 (COVID-19) vaccine, UNSPECIFIED SARS-COV-2 (COVID-19) vaccine, UNSPECIFIED 2020-11-09 00:00:00 Completed [facility] SARS-COV-2 (COVID-19) vaccine, UNSPECIFIED SARS-COV-2 (COVID-19) vaccine, UNSPECIFIED 2020-11-09 00:00:00 Completed [facility] SARS-COV-2 (COVID-19) vaccine, UNSPECIFIED SARS-COV-2 (COVID-19) vaccine, UNSPECIFIED 2020-11-09 00:00:00 Completed [facility] SARS-COV-2 (COVID-19) vaccine, UNSPECIFIED SARS-COV-2 (COVID-19) vaccine, UNSPECIFIED 2020-11-09 00:00:00 Completed [facility] COVID-19 (SARS-COV-2) vaccine, unspecified COVID-19 (SARS-COV-2) vaccine, unspecified 2020-11-09 00:00:00 Completed [facility] COVID-19 (SARS-COV-2) vaccine, unspecified COVID-19 (SARS-COV-2) vaccine, unspecified 2020-11-09 00:00:00 Completed [facility] COVID-19 (SARS-COV-2) vaccine, unspecified COVID-19 (SARS-COV-2) vaccine, unspecified 2020-11-09 00:00:00 Completed [facility] COVID-19 (SARS-COV-2) vaccine, unspecified COVID-19 (SARS-COV-2) vaccine, unspecified 2020-11-09 00:00:00 Completed [facility] COVID-19 (SARS-COV-2) vaccine, unspecified COVID-19 (SARS-COV-2) vaccine, unspecified 2020-11-09 00:00:00 Completed [facility] COVID-19 (SARS-COV-2) vaccine, unspecified COVID-19 (SARS-COV-2) vaccine, unspecified 2020-11-09 00:00:00 Completed [facility] COVID-19 (SARS-COV-2) vaccine, unspecified COVID-19 (SARS-COV-2) vaccine, unspecified 2020-11-09 00:00:00 Completed [facility] COVID-19 (SARS-COV-2) vaccine, unspecified COVID-19 (SARS-COV-2) vaccine, unspecified 2020-11-09 00:00:00 Completed [facility] SARS-COV-2 (COVID-19) vaccine, UNSPECIFIED SARS-COV-2 (COVID-19) vaccine, UNSPECIFIED 2020-11-09 00:00:00 Completed [facility] SARS-COV-2 (COVID-19) vaccine, UNSPECIFIED SARS-COV-2 (COVID-19) vaccine, UNSPECIFIED 2020-11-09 00:00:00 Completed [facility] SARS-COV-2 (COVID-19) vaccine, UNSPECIFIED SARS-COV-2 (COVID-19) vaccine, UNSPECIFIED 2020-10-12 00:00:00 Completed [facility] SARS-COV-2 (COVID-19) vaccine, UNSPECIFIED SARS-COV-2 (COVID-19) vaccine, UNSPECIFIED 2020-10-12 00:00:00 Completed [facility] SARS-COV-2 (COVID-19) vaccine, UNSPECIFIED SARS-COV-2 (COVID-19) vaccine, UNSPECIFIED 2020-10-12 00:00:00 Completed [facility] SARS-COV-2 (COVID-19) vaccine, UNSPECIFIED SARS-COV-2 (COVID-19) vaccine, UNSPECIFIED 2020-10-12 00:00:00 Completed [facility] COVID-19 (SARS-COV-2) vaccine, unspecified COVID-19 (SARS-COV-2) vaccine, unspecified 2020-10-12 00:00:00 Completed [facility] COVID-19 (SARS-COV-2) vaccine, unspecified COVID-19 (SARS-COV-2) vaccine, unspecified 2020-10-12 00:00:00 Completed [facility] COVID-19 (SARS-COV-2) vaccine, unspecified COVID-19 (SARS-COV-2) vaccine, unspecified 2020-10-12 00:00:00 Completed [facility] COVID-19 (SARS-COV-2) vaccine, unspecified COVID-19 (SARS-COV-2) vaccine, unspecified 2020-10-12 00:00:00 Completed [facility] COVID-19 (SARS-COV-2) vaccine, unspecified COVID-19 (SARS-COV-2) vaccine, unspecified 2020-10-12 00:00:00 Completed [facility] COVID-19 (SARS-COV-2) vaccine, unspecified COVID-19 (SARS-COV-2) vaccine, unspecified 2020-10-12 00:00:00 Completed [facility] COVID-19 (SARS-COV-2) vaccine, unspecified COVID-19 (SARS-COV-2) vaccine, unspecified 2020-10-12 00:00:00 Completed [facility] COVID-19 (SARS-COV-2) vaccine, unspecified COVID-19 (SARS-COV-2) vaccine, unspecified 2020-10-12 00:00:00 Completed [facility] SARS-COV-2 (COVID-19) vaccine, UNSPECIFIED SARS-COV-2 (COVID-19) vaccine, UNSPECIFIED 2020-10-12 00:00:00 Completed [facility] SARS-COV-2 (COVID-19) vaccine, UNSPECIFIED SARS-COV-2 (COVID-19) vaccine, UNSPECIFIED 2020-10-12 00:00:00 [facility] influenza, injectable, quadrivalent influenza, injectable, quadrivalent 2020-05-09 00:00:00 [facility] influenza, injectable, quadrivalent influenza, injectable, quadrivalent 2020-05-09 00:00:00 [facility] influenza, injectable, quadrivalent influenza, injectable, quadrivalent 2020-05-09 00:00:00 [facility] influenza, injectable, quadrivalent influenza, injectable, quadrivalent 2020-05-09 00:00:00 [facility] influenza, injectable, quadrivalent influenza, injectable, quadrivalent 2020-05-09 00:00:00 [facility] influenza, injectable, quadrivalent influenza, injectable, quadrivalent 2020-05-09 00:00:00 [facility] influenza, injectable, quadrivalent influenza, injectable, quadrivalent 2020-05-09 00:00:00 [facility] influenza, injectable, quadrivalent influenza, injectable, quadrivalent 2020-05-09 00:00:00 Completed [facility] influenza, injectable, quadrivalent influenza, injectable, quadrivalent 2020-05-09 00:00:00 [facility] influenza, injectable, quadrivalent influenza, injectable, quadrivalent 2020-05-09 00:00:00 Completed [facility] influenza, injectable, quadrivalent influenza, injectable, quadrivalent 2020-05-09 00:00:00 Completed [facility] influenza, injectable, quadrivalent influenza, injectable, quadrivalent 2020-05-09 00:00:00 Completed [facility] influenza, injectable, quadrivalent influenza, injectable, quadrivalent 2020-05-09 00:00:00 [facility] influenza, injectable, quadrivalent influenza, injectable, quadrivalent 2020-05-09 00:00:00 Completed [facility] COVID-19 (SARS-COV-2) vaccine, unspecified COVID-19 (SARS-COV-2) vaccine, unspecified Unknown Completed [facility] COVID-19 (SARS-COV-2) vaccine, unspecified COVID-19 (SARS-COV-2) vaccine, unspecified Unknown Completed [facility] influenza, injectable, quadrivalent influenza, injectable, quadrivalent Unknown Completed [facility] COVID-19 (SARS-COV-2) vaccine, unspecified COVID-19 (SARS-COV-2) vaccine, unspecified Unknown Completed [facility] COVID-19 (SARS-COV-2) vaccine, unspecified COVID-19 (SARS-COV-2) vaccine, unspecified Unknown Completed [facility] influenza, injectable, quadrivalent influenza, injectable, quadrivalent Unknown Completed [facility] COVID-19 (SARS-COV-2) vaccine, unspecified COVID-19 (SARS-COV-2) vaccine, unspecified Unknown Completed [facility] COVID-19 (SARS-COV-2) vaccine, unspecified COVID-19 (SARS-COV-2) vaccine, unspecified Unknown Completed [facility] influenza, injectable, quadrivalent influenza, injectable, quadrivalent Unknown Completed [facility] COVID-19 (SARS-COV-2) vaccine, unspecified COVID-19 (SARS-COV-2) vaccine, unspecified Unknown Completed [facility] COVID-19 (SARS-COV-2) vaccine, unspecified COVID-19 (SARS-COV-2) vaccine, unspecified Unknown Completed [facility] influenza, injectable, quadrivalent influenza, injectable, quadrivalent Unknown Completed [facility] COVID-19 (SARS-COV-2) vaccine, unspecified COVID-19 (SARS-COV-2) vaccine, unspecified Unknown Completed [facility] COVID-19 (SARS-COV-2) vaccine, unspecified COVID-19 (SARS-COV-2) vaccine, unspecified Unknown Completed [facility] influenza, injectable, quadrivalent influenza, injectable, quadrivalent Unknown Completed [facility] Vital Signs Vital Name Observation Time Observation Value Comments S ource Body Weight 2023-09-21 00:00:00 2992 [oz_av] [facility] BP Diastolic 2023-09-21 00:00:00 68 mm[Hg] [facility] BMI (Body Mass Index) 2023-09-21 00:00:00 26.1 kg/m2 [facility] Height 2023-09-21 00:00:00 71 [in_i] [facility] BP Systolic 2023-09-21 00:00:00 142 mm[Hg] [facility] Height 2023-06-16 00:00:00 71 [in_i] [facility] BP Diastolic 2023-06-16 00:00:00 64 mm[Hg] [facility] BMI (Body Mass Index) 2023-06-16 00:00:00 26.6 kg/m2 [facility] Body Weight 2023-06-16 00:00:00 3056 [oz_av] [facility] BP Systolic 2023-06-16 00:00:00 154 mm[Hg] [facility] BP Diastolic 2023-05-18 00:00:00 58 mm[Hg] [facility] Height 2023-05-18 00:00:00 71 [in_i] [facility] BP Systolic 2023-05-18 00:00:00 120 mm[Hg] [facility] Body Weight 2023-05-18 00:00:00 2992 [oz_av] [facility] BMI (Body Mass Index) 2023-05-18 00:00:00 26.1 kg/m2 Counts include 234 beds at the [facility] BP Diastolic 2023-03-10 00:00:00 68 mm[Hg] [facility] Height 2023-03-10 00:00:00 71 [in_i] [facility] BMI (Body Mass Index) 2023-03-10 00:00:00 25.4 kg/m2 Counts include 234 beds at the [facility] BP Systolic 2023-03-10 00:00:00 136 mm[Hg] [facility] Body Weight 2023-03-10 00:00:00 2912 [oz_av] [facility] BP Diastolic 2022-12-29 00:00:00 68 mm[Hg] [facility] Height 2022-12-29 00:00:00 71 [in_i] [facility] BMI (Body Mass Index) 2022-12-29 00:00:00 26.2 kg/m2 Counts include 234 beds at the [facility] BP Systolic 2022-12-29 00:00:00 154 mm[Hg] [facility] Body Weight 2022-12-29 00:00:00 3008 [oz_av] [facility] BP Diastolic 2022-11-20 00:00:00 84 mm[Hg] [facility] Height 2022-11-20 00:00:00 71 [in_i] [facility] BMI (Body Mass Index) 2022-11-20 00:00:00 26.4 kg/m2 Counts include 234 beds at the [facility] BP Systolic 2022-11-20 00:00:00 144 mm[Hg] [facility] Body Weight 2022-11-20 00:00:00 3024 [oz_av] [facility] BP Diastolic 2022-04-03 00:00:00 82 mm[Hg] [facility] Height 2022-04-03 00:00:00 71 [in_i] [facility] BMI (Body Mass Index) 2022-04-03 00:00:00 26.1 kg/m2 Counts include 234 beds at the [facility] BP Systolic 2022-04-03 00:00:00 140 mm[Hg] [facility] Body Weight 2022-04-03 00:00:00 2992 [oz_av] [facility] BP Diastolic 2022-03-20 00:00:00 70 mm[Hg] [facility] Height 2022-03-20 00:00:00 71 [in_i] [facility] BP Systolic 2022-03-20 00:00:00 114 mm[Hg] [facility] Height 2022-03-13 00:00:00 71 [in_i] [facility] BP Diastolic 2021-04-25 00:00:00 68 mm[Hg] [facility] Height 2021-04-25 00:00:00 71 [in_i] [facility] BMI (Body Mass Index) 2021-04-25 00:00:00 26.5 kg/m2 Counts include 234 beds at the [facility] BP Systolic 2021-04-25 00:00:00 112 mm[Hg] [facility] Body Weight 2021-04-25 00:00:00 3040 [oz_av] [facility] BP Diastolic 2021-03-26 00:00:00 78 mm[Hg] [facility] Height 2021-03-26 00:00:00 71 [in_i] [facility] BMI (Body Mass Index) 2021-03-26 00:00:00 26.5 kg/m2 Counts include 234 beds at the [facility] BP Systolic 2021-03-26 00:00:00 184 mm[Hg] [facility] Body Weight 2021-03-26 00:00:00 3040 [oz_av] [facility] BP Diastolic 2021-02-12 00:00:00 52 mm[Hg] [facility] Height 2021-02-12 00:00:00 71 [in_i] [facility] BMI (Body Mass Index) 2021-02-12 00:00:00 26.2 kg/m2 [facility] BP Systolic 2021-02-12 00:00:00 118 mm[Hg] [facility] Body Weight 2021-02-12 00:00:00 3008 [oz_av] [facility] BP Diastolic 2021-01-10 00:00:00 70 mm[Hg] [facility] Height 2021-01-10 00:00:00 71 [in_i] [facility] BP Systolic 2021-01-10 00:00:00 136 mm[Hg] [facility] BP Diastolic 2020-12-13 00:00:00 68 mm[Hg] [facility] Height 2020-12-13 00:00:00 71 [in_i] [facility] BMI (Body Mass Index) 2020-12-13 00:00:00 26.9 kg/m2 [facility] BP Systolic 2020-12-13 00:00:00 146 mm[Hg] [facility] Body Weight 2020-12-13 00:00:00 3088 [oz_av] [facility] Procedures Procedure Date / Time Performed Performing Clinician Source LDCT, chest, for lung cancer screening 2023-05-18 00:00:00 [facility] XR, chest, 2 view 2022-03-20 00:00:00 [facility] Coronary Artery Bypass Graft [facility] Revision of Tricuspid Valve [facility] Cardiac Pacemaker Procedure [facility] Back Surgery [facility] Open Heart Surgery [facility] Cholecystectomy [facility] Hernia Repair [facility] Plan of Care Planned Activity Planned Date Details Comments Source Diagnostic Test Pending 2023-09-21 00:00:00 CMP, serum or plasma [code = CMP, serum or plasma] [facility] Diagnostic Test Pending 2023-09-21 00:00:00 CBC w/ auto diff [code = CBC w/ auto diff] [facility] Diagnostic Test Pending 2023-09-21 00:00:00 HbA1c (hemoglobin A1c), blood [code = HbA1c (hemoglobin A1c), blood] [facility] Diagnostic Test Pending 2023-09-21 00:00:00 lipid panel, blood [code = lipid panel, blood] [facility] Diagnostic Test Pending 2023-09-21 00:00:00 vitamin D, 25-hydroxy, total, serum [code = vitamin D, 25-hydroxy, total, serum] [facility] Diagnostic Test Pending 2023-09-21 00:00:00 urinalysis, reflex culture [code = urinalysis, reflex culture] [facility] Diagnostic Test Pending 2023-09-21 00:00:00 TSH + T4, serum [code = TSH + T4, serum] [facility] Future Appointment 2024-03-21 07:30:00 Chris Butcher; Gerber G, [place] [address] [facility] Future Appointment 2024-03-21 00:00:00 Chris Butcher; Gerber G, [place] [address] [facility] Instructions [facility] Encounters Start Date/Time End Date/Time Encounter Type Admission Type Attending Clinicians Care Facility Care Department Encounter ID Source 2019-12-31 14:30:00 Inpatient Carly Calero [facility]G [id number] [facility] 2019-12-27 15:21:00 Inpatient Carly Croft HCAPM LABO [id number] 99 [facility] 2023-09-21 00:00:00 2023-09-21 00:00:00 Outpatient ROUSE_F [facility] [id number] [facility] 2023-09-21 00:00:00 2023-09-21 00:00:00 HAYDEN Butcher: Gerber Prajapati G, [place] [address] , Ph. [facility] [place] [facility] [place] [facility], DR. VELÁSQUEZ [id number] [place] [facility] 2023-07-16 00:00:00 2023-07-16 00:00:00 Outpatient ERICKSON_R [facility] [id number] [place] [facility] 2023-06-16 00:00:00 2023-06-16 00:00:00 Karey Rodriguez DISTRICT ADMINISTRATIVE ASSISTANT-C: Gerber Prajapati, [place] [address] , Ph. [phone] [facility], [address] VEL[address]SQUEZ [id number] [place] [facility] 2023-05-18 00:00:00 2023-05-18 00:00:00 Outpatient ERICKSON_R [facility] 1002 [place] [facility] 2023-05-18 00:00:00 2023-05-18 00:00:00 Outpatient ERICKSON_R [facility] 1031 [place] [facility] 2023-05-18 00:00:00 2023-05-18 00:00:00 Bairon Velásquez, DO: [address] Pra[address]ati, [place] [address] , Ph. [facility], DR. VEL[place]SQUEZ [id number] [facility] [place] [facility] 2023-03-10 00:00:00 2023-03-10 00:00:00 Bairon Velásquez, DO: [address], [place] [address] , Ph. [phone] [facility], [address] VEL[address]SQUEZ [id number] [facility] [place] [facility] 2023-01-07 00:00:00 2023-01-07 00:00:00 Outpatient ERICKSON_R [facility] 0725 [place] [facility] 2023-01-07 00:00:00 2023-01-07 00:00:00 Outpatient ERICKSON_R [facility] [id number] [place] [facility] 2023-01-07 00:00:00 2023-01-07 00:00:00 Outpatient [facility] 0911 [place] [facility] 2023-01-07 00:00:00 2023-01-07 00:00:00 Outpatient ERICKSON_R [facility] [id number] [place] [facility] 2023-01-07 00:00:00 2023-01-07 00:00:00 Outpatient ERICKSON_R [facility] 0921 [place] [place] [facility] 2022-12-29 00:00:00 2022-12-29 00:00:00 Bairon Velásquez, DO: [address] [place] [address] , Ph. [facility], DR. VEL[place]SQUEZ [id number] [place] [facility] 2022-11-20 00:00:00 2022-11-20 00:00:00 Outpatient ERICKSON_R [facility] [id number] [place] [facility] 2022-11-20 00:00:00 2022-11-20 00:00:00 Outpatient ERICKSON_R [facility] [id number] [place] [facility] 2022-11-20 00:00:00 2022-11-20 00:00:00 Bairon Velásquez, DO: [address] [place] [address] , Ph. [facility], DR. VEL[place]SQUEZ [id number] [facility] [place] [facility] 2022-04-03 00:00:00 2022-04-03 00:00:00 Outpatient ERICKSON_R [facility] [address] [place] [facility] 2022-04-03 00:00:00 2022-04-03 00:00:00 Bairon Velásquez, DO: [address] [place] [address] , Ph. [phone] [facility], [address] V[place]SQUEZ [id number] [facility] 2022-04-03 00:00:00 2022-04-03 00:00:00 Outpatient Bairon Velásquez [facility] [id number] 2022-03-20 00:00:00 2022-03-20 00:00:00 Outpatient HOUSTONANNEMARIE_R [facility] 803 [facility] 2022-03-20 00:00:00 2022-03-20 00:00:00 Barion Velásquez, DO: [address] [place] [address] , Ph. [facility], DR. VEL[place]SQUEZ [id number] [facility] 2022-03-20 00:00:00 2022-03-20 00:00:00 Outpatient Bairon Velásquez [facility] [id number] 2022-03-20 00:00:00 2022-03-20 00:00:00 Outpatient Bairon Velásquez [facility] [id number] 2022-03-20 00:00:00 2022-03-20 00:00:00 Outpatient Bairon Velásquez [facility] [id number] 2022-03-13 00:00:00 2022-03-13 00:00:00 Outpatient ERICKSON_R [facility] 28 [place] [place] [facility] 2022-03-13 00:00:00 2022-03-13 00:00:00 Bairon Velásquez, DO: [address] [place] [address] , Ph. [phone] [facility], [address] VEL[address]SQUEZ [id number] [facility] 2022-03-13 00:00:00 2022-03-13 00:00:00 Outpatient Bairon Velásquez [facility] [id number] 2021-09-19 11:53:00 2021-09-19 11:53:00 Outpatient ERICKSON_R [facility] [id number] [place] [facility] 2021-04-25 10:12:00 2021-04-25 10:12:00 Outpatient ERICKSON_R [facility] [id number] [place] [facility] 2021-04-25 00:00:00 2021-04-25 00:00:00 Outpatient Bairon Velásquez [facility] [id number] 2021-04-25 00:00:00 2021-04-25 00:00:00 Bairon Velásquez, DO: [address] [place] [address] , Ph. [facility], DR. VEL[place]SQUEZ [id number] [facility] 2021-03-26 11:31:00 2021-03-26 11:31:00 Outpatient ERICKSON_R [facility] 10 [facility] 2021-03-26 00:00:00 2021-03-26 00:00:00 Bairon Velásquez, DO: [address] [place] [address] , Ph. [facility], DR. VEL[place]SQUEZ [id number] [facility] 2021-03-26 00:00:00 2021-03-26 00:00:00 Outpatient Bairon Velásquez [facility] [id number] 2021-03-26 00:00:00 2021-03-26 00:00:00 Outpatient Bairon Velásquez [facility] [id number] 2021-02-12 12:03:00 2021-02-12 12:03:00 Outpatient ERICKSON_R [facility] 29 [facility] 2021-02-12 00:00:00 2021-02-12 00:00:00 Bairon Velásquez, DO: [address] [place] [address] , Ph. [phone] [facility], DR[address] VEL[address]SQUEZ [id number] [facility] 2021-02-12 00:00:00 2021-02-12 00:00:00 Outpatient Bairon Velásquez [facility] [id number] 2021-01-10 10:36:00 2021-01-10 10:36:00 Outpatient ERICKSON_R [facility] [address] [place] [facility] 2021-01-10 00:00:00 2021-01-10 00:00:00 Outpatient Bairon Velásquez [facility] [id number] 2021-01-10 00:00:00 2021-01-10 00:00:00 Bairon Velásquez, DO: [address], [place] [address] , Ph. [phone] [facility], [address] [place]SQUEZ [id number] [facility] [place] [facility] 2020-12-13 10:11:00 2020-12-13 10:11:00 Outpatient ERICKSON_R [facility] [id number] [facility] [place] [facility] 2020-12-13 00:00:00 2020-12-13 00:00:00 Outpatient Bairon Velásquez [facility] [id number] 2020-12-13 00:00:00 2020-12-13 00:00:00 Bairon Velásquez, DO: [address], [place] [address] , Ph. [phone] [place] [address], DR[address] VEL[address]SQUEZ [id number] [facility] 2020-12-11 10:29:00 2020-12-11 10:29:00 Outpatient ERICKSON_R [facility] [id number] [facility] [place] [facility] 2020-10-02 11:42:00 2020-10-02 11:42:00 Outpatient ERICKSON_R [facility] [id number] [facility] [place] [facility] 2020-09-24 10:35:00 2020-09-24 10:35:00 Outpatient ERICKSON[facility]R [facility] 0208 [facility] 2020-09-20 02:20:00 2020-09-20 02:20:00 Outpatient SHANNAICKSON_R [facility] 0204 [facility] 2019-12-27 16:39:00 2019-12-27 16:39:00 Outpatient Carly Croft FREEMAN [facility]THOPAEDICS & SPORTS MEDICINE [id number] Results Test Description Test Time Test Comments Results Result Co mments Source [facility] Ag [Presence] in Respiratory specimen by Rapid qqijvzwcpdy6850-44-76 10:07:00* Test Item Value Reference Range Interpretation Comme nts SARS CoV 2 (test code = SARS CoV 2) [facility] Ag [Presence] in Respiratory specimen by Rapid vyliwhnsqrw4004-93-26 10:07:00* Test Item Value Reference Range Interpretation Comme nts SARS CoV 2 (test code = SARS CoV 2) [facility] Ag [Presence] in Respiratory specimen by Rapid fuqlwdoawgt0769-17-63 10:07:00* Test Item Value Reference Range Interpretation Comme nts SARS CoV 2 (test code = SARS CoV 2) [facility] Ag [Presence] in Respiratory specimen by Rapid xaozzugpqke6198-78-77 10:07:00* Test Item Value Reference Range Interpretation Comme nts SARS CoV 2 (test code = SARS CoV 2) [facility] Ag [Presence] in Respiratory specimen by Rapid caoykdpwhpz6061-96-89 10:07:00* Test Item Value Reference Range Interpretation Comme nts SARS CoV 2 (test code = SARS CoV 2) positive [facility] or Rfyowu9542-58-44 00:00:00* Test Item Value Reference Range Interpretation Comme nts Glucose [Mass/volume] in Ser um or Plasma (test code = 2345-7) 126 mg/dL 65-99 H Urea nitrogen [Mass/volume] in Serum or Plasma (test code = 3094-0) 15 mg/dL 8-27 Creatinine [Mass/volume] in Serum or Plasma (test code = 2160-0) 1.15 mg/dL 0.76-1.27 Glomerular filtration rate/1.73 sq M.predicted among non-blacks [Volume Rate/Area] in Serum, Plasma or Blood by Creatinine-based formula (CKD-EPI) (test code = 15944-8) 59 mL/min/1.73 >59 L Glomerular filtration rate/1.73 sq M.predicted among blacks [Volume Rate/Area] in Serum, Plasma or Blood by Creatinine-based formula (CKD-EPI) (test code = 04864-6) 68 mL/min/1.73 >59 Urea nitrogen/Creatinine [Ma ss Ratio] in Serum or Plasma (test code = 3097-3) 13 10-24 Sodium [Moles/volume] in Ser um or Plasma (test code = 2951-2) 137 mmol/L 134-144 Potassium [Moles/volume] in Serum or Plasma (test code = 2823-3) 4.1 mmol/L 3.5-5.2 Chloride [Moles/volume] in Serum or Plasma (test code = 5-0) 102 mmol/L 96-106 Carbon dioxide, total [Moles/volume] in Serum or Plasma (test code = 2027-) 21 mmol/L 20-29 Calcium [Mass/volume] in Ser um or Plasma (test code = 09147-0) 9.0 mg/dL 8.6-10.2 Protein [Mass/volume] in Ser um or Plasma (test code = 2885-2) 6.6 g/dL 6.0-8.5 Albumin [Mass/volume] in Ser um or Plasma (test code = 1751-7) 4.0 g/dL 3.6-4.6 Globulin [Mass/volume] in Serum by calculation (test code = 49584-6) 2.6 g/dL 1.5-4.5 Albumin/Globulin [Mass Ratio ] in Serum or Plasma (test code = 1759-0) 1.5 1.2-2.2 Bilirubin.total [Mass/volume ] in Serum or Plasma (test code = 1974-) 0.5 mg/dL 0.0-1.2 Alkaline phosphatase [Enzymatic activity/volume] in Serum or Plasma (test code = 6768-6) 109 IU/L 39-117 Aspartate aminotransferase [Enzymatic activity/volume] in Serum or Plasma (test code = 1920-8) 14 IU/L 0-40 Alanine aminotransferase [Enzymatic activity/volume] in Serum or Plasma (test code = 1742-6) 5 IU/L 0-44 [facility] W/AUTO [id number] 07:31:00* Test Item Value Reference Range Interpretation Comme nts WHITE BLOOD CELL (test code = WBC) 7.6 K/MM3 3.8-9.8 N RED BLOOD CELL (test code = RBC) 4.18 M/MM3 3.95-5.67 N HEMOGLOBIN (test code = HGB) 12.9 G/DL 12.4-16.7 N HEMATOCRIT (test code = HCT) 38.8 % 35.9-49.5 N MEAN CELL VOLUME (test code = MCV) 93 fL 81.7-96.1 N MEAN CELL HGB (test code = MCH) 30.9 pg 27.6-33.2 N MEAN CELL HGB CONCETRATION (test code = MCHC) 33.2 % 32.9-35.5 N RED CELL DISTRIBUTION WIDTH (test code = RDW) 13.1 % 12.1-15.2 N PLATELET COUNT (test code = PLT) 126 K/MM3 129-368 L MEAN PLATELET VOLUME (test c ode = MPV) 13.1 fl 7.4-10.4 H NEUTROPHIL % (test code = NT%) 62.7 % 43-75 N IMMATURE GRANULOCYTE % (test code = IG%) 0.4 % 0.0-2.0 N LYMPHOCYTE % (test code = LY%) 21.4 % 14-44 N MONOCYTE % (test code = MO%) 8.2 % 4-13 N EOSINOPHIL % (test code = EO%) 6.6 % 0-6 H BASOPHIL % (test code = BA%) 0.7 % 0-2 N NUCLEATED RBC % (test code = NRBC%) 0.0 % 0-1.0 N NEUTROPHIL # (test code = NT#) 4.76 K/mm3 2.0-7.6 N IMMATURE GRANULOCYTE # (test code = IG#) 0.03 x10 3/uL 0-0.03 N LYMPHOCYTE # (test code = LY#) 1.62 K/mm3 1.0-3.8 N MONOCYTE # (test code = MO#) 0.62 K/mm3 0.1-0.8 N EOSINOPHIL # (test code = EO#) 0.50 K/mm3 0.0-0.2 H BASOPHIL # (test code = BA#) 0.05 K/mm3 0.0-0.2 N NUCLEATED RBC # (test code = NRBC#) 0.00 K/mm3 0.0-0.1 N DIFFERENTIAL [id number] 07:31:00* Test Item Value Reference Range Interpretation Comme nts RBC MORPHOLOGY REQUIRED (venecia t code = RBCM) NORMAL PLATELET ESTIMATE (test code = PLTEST) ADEQUATE ADEQUATE PLATELET MORPHOLOGY (test co de = PLTMORPH) FEW LARGE NORMAL BASIC METABOLIC [id number] 06:58:00* Test Item Value Reference Range Interpretation Comme nts SODIUM (test code = NA) 133 MMOL/L 137-145 L POTASSIUM (test code = K) 4.4 MMOL/L 3.5-5.1 N CHLORIDE (test code = CL) 100 MMOL/L 98-107 N CARBON DIOXIDE (test code = CO2) 25 MMOL/L 22-30 N GLUCOSE (test code = GLU) 130 MG/DL 74-106 H BLOOD UREA NITROGEN (test code = BUN) 25 MG/DL 9-20 H GLOMERULAR FILTRATION RATE (test code = GFR) 58 Reporting units: ml/min/1.73 m2 (Modified MDRD Formula)Reference Range: > or = 60 ml/min/1.73 m2 CREATININE (test code = CREAT) 1.20 MG/DL 0.66-1.25 N CALCIUM (test code = CA) 9.4 MG/DL 8.4-10.2 N LIPID PROFILE (CORONARY RISK)2019-12-31 06:58:00* Test Item Value Reference Range Interpretation Comme nts TRIGLYCERIDES (test code = TRIG) 139 MG/DL TRIGLYCERIDES REFERENCE RANGE:Normal: <150 mg/dLBorderline High: 150-199 mg/dLHigh: 200-499 mg/dLVery High: >=500 mg/dL CHOLESTEROL (test code = CHOL) 142 MG/DL <200 HDL CHOLESTEROL (test code = HDL) 37 MG/DL 40-59 L LIPOPROTEIN LDL (test code = LDL) 80 MG/DL 0-99 N OPTIMAL......... <100 mg/dLNEAR OPTIMAL/ABOVE OPTIMAL.........100-12 9 mg/dL BORDERLINE HIGH.........130-159 mg/dL HIGH.........160-189 mg/dL VERY HIGH.........>/= 190 mg/dL [id number] 06:58:00* Test Item Value Reference Range Interpretation Comme nts MAGNESIUM (test code = MAG) 2.0 MG/DL 1.6-2.3 N LIPID PROFILE (CORONARY RISK)2019-12-31 06:48:00* Test Item Value Reference Range Interpretation Comme nts TRIGLYCERIDES (test code = TRIG) 139 MG/DL TRIGLYCERIDES REFERENCE RANGE:Normal: <150 mg/dLBorderline High: 150-199 mg/dLHigh: 200-499 mg/dLVery High: >=500 mg/dL CHOLESTEROL (test code = CHOL) 142 MG/DL <200 HDL CHOLESTEROL (test code = HDL) 37 MG/DL 40-59 L LIPOPROTEIN LDL (test code = LDL) MG/DL 0-99 [id number] 06:48:00* Test Item Value Reference Range Interpretation Comme nts MAGNESIUM (test code = MAG) 2.0 MG/DL 1.6-2.3 N BASIC METABOLIC [id number] 06:48:00* Test Item Value Reference Range Interpretation Comme nts SODIUM (test code = NA) 133 MMOL/L 137-145 L POTASSIUM (test code = K) 4.4 MMOL/L 3.5-5.1 N CHLORIDE (test code = CL) 100 MMOL/L 98-107 N CARBON DIOXIDE (test code = CO2) 25 MMOL/L 22-30 N GLUCOSE (test code = GLU) 130 MG/DL 74-106 H BLOOD UREA NITROGEN (test code = BUN) 25 MG/DL 9-20 H GLOMERULAR FILTRATION RATE (test code = GFR) 58 Reporting units: ml/min/1.73 m2 (Modified MDRD Formula)Reference Range: > or = 60 ml/min/1.73 m2 CREATININE (test code = CREAT) 1.20 MG/DL 0.66-1.25 N CALCIUM (test code = CA) 9.4 MG/DL 8.4-10.2 N BASIC METABOLIC [id number] 06:47:00* Test Item Value Reference Range Interpretation Comme nts SODIUM (test code = NA) 133 MMOL/L 137-145 L POTASSIUM (test code = K) 4.4 MMOL/L 3.5-5.1 N CHLORIDE (test code = CL) 100 MMOL/L 98-107 N CARBON DIOXIDE (test code = CO2) 25 MMOL/L 22-30 N GLUCOSE (test code = GLU) 130 MG/DL 74-106 H BLOOD UREA NITROGEN (test code = BUN) 25 MG/DL 9-20 H GLOMERULAR FILTRATION RATE (test code = GFR) 58 Reporting units: ml/min/1.73 m2 (Modified MDRD Formula)Reference Range: > or = 60 ml/min/1.73 m2 CREATININE (test code = CREAT) 1.20 MG/DL 0.66-1.25 N CALCIUM (test code = CA) 9.4 MG/DL 8.4-10.2 N LIPID PROFILE (CORONARY RISK)2019-12-31 06:47:00* Test Item Value Reference Range Interpretation Comme nts TRIGLYCERIDES (test code = TRIG) 139 MG/DL TRIGLYCERIDES REFERENCE RANGE:Normal: <150 mg/dLBorderline High: 150-199 mg/dLHigh: 200-499 mg/dLVery High: >=500 mg/dL CHOLESTEROL (test code = CHOL) 142 MG/DL <200 HDL CHOLESTEROL (test code = HDL) MG/DL 40-59 LIPOPROTEIN LDL (test code = LDL) MG/DL 0-99 [id number] 06:47:00* Test Item Value Reference Range Interpretation Comme nts MAGNESIUM (test code = MAG) MG/DL 1.6-2.3 BASIC METABOLIC [id number] 06:46:00* Test Item Value Reference Range Interpretation Comme nts SODIUM (test code = NA) 133 MMOL/L 137-145 L POTASSIUM (test code = K) 4.4 MMOL/L 3.5-5.1 N CHLORIDE (test code = CL) 100 MMOL/L 98-107 N CARBON DIOXIDE (test code = CO2) MMOL/L 22-30 GLUCOSE (test code = GLU) MG/DL 74-106 BLOOD UREA NITROGEN (test code = BUN) MG/DL 9-20 GLOMERULAR FILTRATION RATE (test code = GFR) 58 Reporting units: ml/min/1.73 m2 (Modified MDRD Formula)Reference Range: > or = 60 ml/min/1.73 m2 CREATININE (test code = CREAT) 1.20 MG/DL 0.66-1.25 N CALCIUM (test code = CA) MG/DL 8.7-9.7 LIPID PROFILE (CORONARY RISK)2019-12-31 06:46:00* Test Item Value Reference Range Interpretation Comme nts TRIGLYCERIDES (test code = TRIG) MG/DL CHOLESTEROL (test code = CHOL) 142 MG/DL <200 HDL CHOLESTEROL (test code = HDL) MG/DL 40-59 LIPOPROTEIN LDL (test code = LDL) MG/DL 0-99 [id number] 06:46:00* Test Item Value Reference Range Interpretation Comme nts MAGNESIUM (test code = MAG) MG/DL 1.6-2.3 BASIC METABOLIC [id number] 06:44:00* Test Item Value Reference Range Interpretation Comme nts SODIUM (test code = NA) 133 MMOL/L 137-145 L POTASSIUM (test code = K) 4.4 MMOL/L 3.5-5.1 N CHLORIDE (test code = CL) 100 MMOL/L 98-107 N CARBON DIOXIDE (test code = CO2) MMOL/L 22-30 GLUCOSE (test code = GLU) MG/DL 74-106 BLOOD UREA NITROGEN (test co de = BUN) MG/DL 9-20 GLOMERULAR FILTRATION RATE ( test code = GFR) CREATININE (test code = CREAT) MG/DL 0.66-1.25 CALCIUM (test code = CA) MG/DL 8.7-9.7 LIPID PROFILE (CORONARY RISK)2019-12-31 06:44:00* Test Item Value Reference Range Interpretation Comme nts TRIGLYCERIDES (test code = TRIG) MG/DL CHOLESTEROL (test code = CHOL) MG/DL <200 HDL CHOLESTEROL (test code = HDL) MG/DL 40-59 LIPOPROTEIN LDL (test code = LDL) MG/DL 0-99 [id number] 06:44:00* Test Item Value Reference Range Interpretation Comme nts MAGNESIUM (test code = MAG) MG/DL 1.6-2.3 BASIC METABOLIC [id number] 06:43:00* Test Item Value Reference Range Interpretation Comme nts SODIUM (test code = NA) MMOL/L 137-145 POTASSIUM (test code = K) MMOL/L 3.5-5.1 CHLORIDE (test code = CL) 100 MMOL/L 98-107 N CARBON DIOXIDE (test code = CO2) MMOL/L 22-30 GLUCOSE (test code = GLU) MG/DL 74-106 BLOOD UREA NITROGEN (test co de = BUN) MG/DL 9-20 GLOMERULAR FILTRATION RATE ( test code = GFR) CREATININE (test code = CREAT) MG/DL 0.66-1.25 CALCIUM (test code = CA) MG/DL 8.7-9.7 LIPID PROFILE (CORONARY RISK)2019-12-31 06:43:00* Test Item Value Reference Range Interpretation Comme nts TRIGLYCERIDES (test code = TRIG) MG/DL CHOLESTEROL (test code = CHOL) MG/DL <200 HDL CHOLESTEROL (test code = HDL) MG/DL 40-59 LIPOPROTEIN LDL (test code = LDL) MG/DL 0-99 [id number] 06:43:00* Test Item Value Reference Range Interpretation Comme [facility] MAGNESIUM (test code = MAG) MG/DL 1.6-2.3 PROTHROMBIN [id number] 06:41:00* Test Item Value Reference Range Interpretation Comme [facility] PROTHROMBIN TIME PATIENT (test code = PTP) 11.7 SECONDS 9.4-12.5 N INTERNATIONAL NORMAL RATIO (test code = INR) 1.1 The INR is to be used only for monitoring oral anticoagulanttherap y. INDICATION INR VALUE -------1. Prophylaxis, deep venous thrombosis, including high risk surgery. 2.0 - 3.0 2. Prophylaxis, deep venous thrombosis, hip surgery, treatment for deep venous thrombosis or pulmonary prevention of systemic embolism in patients with valvular heart disease, atrial fibrillation, tissue heart valve, or acute myocardial infarction. 2.0 - 3.0 3. Mechanical prosthesis heart valves, recurrent systemic embolism. 3.0 - 4.5 PTT [id number] 06:41:00* Test Item Value Reference Range Interpretation [facility] ACTIVATED (test code = APTT) 36.0 SECONDS 25.1-36.5 N CBC W/AUTO [id number] 06:33:00* Test Item Value Reference Range Interpretation Comme nts WHITE BLOOD CELL (test code = WBC) 7.6 K/MM3 3.8-9.8 N RED BLOOD CELL (test code = RBC) 4.18 M/MM3 3.95-5.67 N HEMOGLOBIN (test code = HGB) 12.9 G/DL 12.4-16.7 N HEMATOCRIT (test code = HCT) 38.8 % 35.9-49.5 N MEAN CELL VOLUME (test code = MCV) 93 fL 81.7-96.1 N MEAN CELL HGB (test code = MCH) 30.9 pg 27.6-33.2 N MEAN CELL HGB CONCETRATION (test code = MCHC) 33.2 % 32.9-35.5 N RED CELL DISTRIBUTION WIDTH (test code = RDW) 13.1 % 12.1-15.2 N PLATELET COUNT (test code = PLT) 126 K/MM3 129-368 L MEAN PLATELET VOLUME (test c ode = MPV) 13.1 fl 7.4-10.4 H NEUTROPHIL % (test code = NT%) 62.7 % 43-75 N IMMATURE GRANULOCYTE % (test code = IG%) 0.4 % 0.0-2.0 N LYMPHOCYTE % (test code = LY%) 21.4 % 14-44 N MONOCYTE % (test code = MO%) 8.2 % 4-13 N EOSINOPHIL % (test code = EO%) 6.6 % 0-6 H BASOPHIL % (test code = BA%) 0.7 % 0-2 N NUCLEATED RBC % (test code = NRBC%) 0.0 % 0-1.0 N NEUTROPHIL # (test code = NT#) 4.76 K/mm3 2.0-7.6 N IMMATURE GRANULOCYTE # (test code = IG#) 0.03 x10 3/uL 0-0.03 N LYMPHOCYTE # (test code = LY#) 1.62 K/mm3 1.0-3.8 N MONOCYTE # (test code = MO#) 0.62 K/mm3 0.1-0.8 N EOSINOPHIL # (test code = EO#) 0.50 K/mm3 0.0-0.2 H BASOPHIL # (test code = BA#) 0.05 K/mm3 0.0-0.2 N NUCLEATED RBC # (test code = NRBC#) 0.00 K/mm3 0.0-0.1 N DIFFERENTIAL [id number] 06:33:00* Test Item Value Reference Range Interpretation Comme nts RBC MORPHOLOGY REQUIRED (venecia t code = RBCM) PLATELET ESTIMATE (test code = PLTEST) ADEQUATE PLATELET MORPHOLOGY (test co de = PLTMORPH) NORMAL CBC W/AUTO [id number] 06:33:00* Test Item Value Reference Range Interpretation Comme nts WHITE BLOOD CELL (test code = WBC) 7.6 K/MM3 3.8-9.8 N RED BLOOD CELL (test code = RBC) 4.18 M/MM3 3.95-5.67 N HEMOGLOBIN (test code = HGB) 12.9 G/DL 12.4-16.7 N HEMATOCRIT (test code = HCT) 38.8 % 35.9-49.5 N MEAN CELL VOLUME (test code = MCV) 93 fL 81.7-96.1 N MEAN CELL HGB (test code = MCH) 30.9 pg 27.6-33.2 N MEAN CELL HGB CONCETRATION (test code = MCHC) 33.2 % 32.9-35.5 N RED CELL DISTRIBUTION WIDTH (test code = RDW) 13.1 % 12.1-15.2 N PLATELET COUNT (test code = PLT) 126 K/MM3 129-368 L MEAN PLATELET VOLUME (test c ode = MPV) 13.1 fl 7.4-10.4 H NEUTROPHIL % (test code = NT%) 62.7 % 43-75 N IMMATURE GRANULOCYTE % (test code = IG%) 0.4 % 0.0-2.0 N LYMPHOCYTE % (test code = LY%) 21.4 % 14-44 N MONOCYTE % (test code = MO%) 8.2 % 4-13 N EOSINOPHIL % (test code = EO%) 6.6 % 0-6 H BASOPHIL % (test code = BA%) 0.7 % 0-2 N NUCLEATED RBC % (test code = NRBC%) 0.0 % 0-1.0 N NEUTROPHIL # (test code = NT#) 4.76 K/mm3 2.0-7.6 N IMMATURE GRANULOCYTE # (test code = IG#) 0.03 x10 3/uL 0-0.03 N LYMPHOCYTE # (test code = LY#) 1.62 K/mm3 1.0-3.8 N MONOCYTE # (test code = MO#) 0.62 K/mm3 0.1-0.8 N EOSINOPHIL # (test code = EO#) 0.50 K/mm3 0.0-0.2 H BASOPHIL # (test code = BA#) 0.05 K/mm3 0.0-0.2 N NUCLEATED RBC # (test code = NRBC#) 0.00 K/mm3 0.0-0.1 N DIFFERENTIAL [id number] 06:33:00* Test Item Value Reference Range Interpretation Comme nts RBC MORPHOLOGY REQUIRED (venecia t code = RBCM) PLATELET ESTIMATE (test code = PLTEST) ADEQUATE PLATELET MORPHOLOGY (test co de = PLTMORPH) NORMAL Coronavirus 2018 nCoV [id number] 21:41:00* Test Item Value Reference Range Interpretation Comme nts Coronavirus 2019 nCoV Bedsid e (test code = [id number]) Negative Negative Coronavirus 2019 nCoV [id number] 21:41:00* Test Item Value Reference Range Interpretation Comme nts Coronavirus 2019 nCoV Bedsid e (test code = [id number]) Negative Negative Notes Date/Time Note Provider Source 2019-12-31 10:21:00 [id number] u8bEDsPuNHp37A5ufvojtoMk2NEia eEmuEvl6qqRRSS2FvcdzJJ7UNvmucZhnxQ3461-39-06K26:2 1:[id number] [address] PATIENT NAME: RYAN HALL ADMIT DATE: 12/31/19ACCOUNT NO: [id number] ROOM NO: AGE: 79 REPORT TYPE: ELECTROCARDIOGRAM SEX: M ADMITTING PHYSICIAN: ATTENDING PHYSICIAN:Carly Croft MD Order:[id number] Reason : S/P PPI Test Date/Time Stamp:ThuDec 31 2019 10:21:30Blood Pressure : / mmHGVent. Rate : 071 BPM Atrial Rate : 044 BPM P-R Int : 000 ms QRS Dur : 110 ms QT Int : 418 ms P-R-T Axes : 000 069 199 degrees QTc Int : 454 ms Electronic atrial pacemakerST and Marked T wave abnormality, consider anterolateral ischemiaAbnormal ECGWhen compared with ECG of 31-DEC-2019 06:54,Electronic atrial pacemaker has replaced Electronic ventricular pacemakerConfirmed by CARLY CROFT ([id number]) on 12/31/2019 11:39:34 AM Referred By: Carly Croft Confirmed by:CARLY CROFT at 1139 PATIENT NAME: RYAN HALL .[id number] AVAvailable for patient xkobWTACQLQXSJNTGJ7591-85-84K63:39:53 [facility] 2019-12-31 09:24:00 XGzsonsayov86181621d P3ZC8/LIQE1F7s2a1Zk+gSdKrF5/3 aOvf7eY6BEBpfMEd0Fq6I8ZUSk0A3Nwgcb6405-39-74H11:2 4:[id number] [place] [address] PATIENT NAME: RYAN HALL ADMIT DATE: 12/31/19ACCOUNT NO: [id number] ROOM NO: AGE: 79 REPORT TYPE: CARDIAC CATHETERIZATION REPORT SEX: M ADMITTING PHYSICIAN: ATTENDING PHYSICIAN:Carly Croft MD PROCEDURE DATE: 12/31/2019 ICT SECURITY SPECIALIST: Carly Croft MD TITLE OF THE PROCEDURE: Pacemaker generator change. INDICATION FOR THE PROCEDURE: Sick sinus syndrome, paroxysmal atrialfibrillation, paroxysmal supraventricular tachycardia for pacemaker generatorchange for SANDRA. ESTIMATED BLOOD LOSS: Minimal. COMPLICATIONS: None. CONTRAST: None. ANESTHESIA: Conscious sedation with Versed and fentanyl and 1% lidocaine forlocal anesthesia. FINAL DIAGNOSIS: Successful pacemaker generator change. The patient's leadswere existing and they were already MRI compatible. The new generator is alsoMRI compatible. For the more details of the procedure, please see report in thechart. Dictated By: Carly Croft MD WT: CATH:ROBYN/SHEILA/NTSDD: 12/31/2019 09:24:31DT: 12/31/2019 09:31:22Conf#: [id number]/DID#: [id number] Authenticated by Carly Croft MD On 12/31/2019 11:41:20 AM at 1141 PATIENT NAME: RYAN HALL Cqyu3460-26-57N31:31:00Z.[id number] ble for patient enztZJYGNFHFGJFKIX4920-24-09R03:42:[address] [facility] 2019-[facility] 06:54:00 ZQgxudjpwpf61043984M guhWxGIYgrzvheov9s4jw3bobfdX5 nAcAFGaCrOPAAV4755wp8n2zOgUUwAa9fO2930-93-60F67:5 4:489134-5[address] [place] [address] PATIENT NAME: RYAN HALL ADMIT DATE: 12/31/19ACCOUNT NO: [id number] ROOM NO: AGE: 79 REPORT TYPE: ELECTROCARDIOGRAM SEX: M ADMITTING PHYSICIAN: ATTENDING PHYSICIAN:Carly Croft MD Order:[id number] Reason : PACEMAKER GENERATOR CHANGE Test Date/Time Stamp:ThuDec 31 2019 06:54:23Blood Pressure : / mmHGVent. Rate : 055 BPM Atrial Rate : 050 BPM P-R Int : 120 ms QRS Dur : 172 ms QT Int : 492 ms P-R-T Axes : 000 053 200 degrees QTc Int : 470 ms AV sequential or dual chamber electronic pacemakerNo previous ECGs availableConfirmed by CARLY CROFT ([id number]) on 12/31/2019 8:34:20 AM Referred By: Carly Croft Confirmed by:CARLY CROFT at 0834 PATIENT NAME: RYAN HALL .[id number] AVAvailable for patient xizoCWLGUWXOTLJIEG5505-64-57R09:34:36 [facility] 2019-12-30 07:06:00 [id number] 7lKz1vKLIWi5nNFfBwIjDXjYbxmXi X/EL5DtY72i7auQ6/oSYeM2cmjpyT0Mph31996-28-99C88:0 6:772980-94[address] [place] [address] PATIENT NAME: RYAN HALL ADMIT DATE: ACCOUNT NO: [id number] ROOM NO: AGE: 79 REPORT TYPE: HISTORY AND PHYSICAL SEX: M ADMITTING PHYSICIAN: ATTENDING PHYSICIAN:Carly Croft MD PATIENT NAME: RYAN HALL ADMIT DATE:12/31/2019ADMISSION DATE: 12/31/2019 ICT SECURITY SPECIALIST: Carly Croft MD REASON FOR ADMISSION: Pacemaker generator change for SANDRA. HISTORY OF PRESENT ILLNESS: Ryan is an 79-year-old patient with extensivecardiovascular history, who has a long history of paroxysmal atrialfibrillation, paroxysmal supraventricular tachycardia and sick sinus syndrome.He has had a pacemaker implanted on 01/25/2011. The pacemaker has reached SANDRA.The patient is here for pacemaker generator change. The patient has hadextensive cardiovascular history. His cardiac status has been stable lately.He has stable angina and dyspnea. He has known coronary artery disease. Lastcardiac catheterization in 2016 showed the RUTLEDGE to be occluded and the veingraft to the obtuse marginal and the PD and diagonal were open. The patient hasknown aortic valve disease. He had initially an aortic valve replacement andthen was followed by a TAVR. His last echocardiogram in September showed stablevalvular function and he had muql-sg-piwzozrg mitral regurgitation, normalejection fraction. His last nuclear stress test was stable in December 2019. Hislast carotid Doppler showed stable, carotid disease, right more than leftmanaged medically. The patient is here today for permanent pacemaker generatorchange. PAST MEDICAL HISTORY: Remarkable for the above in addition to hypertension andhyperlipidemia. PAST SURGICAL HISTORY: He has had the bypass and pacemaker mentioned above, hehas had history of angioplasties. He has had cholecystectomy. ALLERGIES: NO KNOWN DRUG ALLERGIES. MEDICATIONS: Atorvastatin 80 mg daily, nitroglycerin p.r.n., olmesartan,hydrochlorothiazide 40/25 mg daily, aspirin 81 mg daily, Plavix 75 mg daily,carvedilol 6.25 mg b.i.d. SOCIAL HISTORY: The patient is an active smoker. There is no history ofalcohol or street drug use. FAMILY HISTORY: Positive for atherosclerotic cardiovascular disease. REVIEW OF SYSTEMS: Remarkable for the above. He does have angina and dyspnea, PATIENT NAME: RYAN HALL fatigue. No acute GI or symptoms. No TIAs or strokes. The rest of thereview of system is enclosed. PAST SURGICAL HISTORY: Three back surgeries, three hernia surgeries in additionto the above. PHYSICAL EXAMINATION:GENERAL: Reveals a pleasant elderly male, in no acute distress.VITAL SIGNS: Blood pressure 142/86, pulse 67 and regular, respiratory rate 18and unlabored, and temperature afebrile.HEENT: Head atraumatic and normocephalic. Eyes ENT examination within normalfor age.NECK: Supple. No jugular venous distention, bruits, or lymphadenopathy.Normal carotid upstroke.LUNGS: Decreased air entry, otherwise clear and resonant.HEART: Regular rate and rhythm with II/ systolic ejection murmur at the leftlower sternal border. No gallops.ABDOMEN: Soft. No tenderness, no organomegaly, no masses or bruits.EXTREMITIES: 2+ distal pulses. No edema, cyanosis, or clubbing.NEUROLOGIC: Alert and oriented x3. The examination appears to be nonfocal. LABORATORY DATA: Pending. Noninvasive cardiovascular workup enclosed. IMPRESSION: This is an 79-year-old patient with a long history of paroxysmalatrial fibrillation, sick sinus syndrome, who has a pacemaker since 2010. Thepatient's pacemaker at this time has reached SANDRA. The patient is here forpacemaker generator change. The recommendation is to proceed with the above-mentioned procedure. The risksand benefits of the planned procedure were discussed in detail with the patientand he is willing to proceed. Rest as per orders. Dictated By: Carly Croft MD WT: HP:AUSTEN/SHEILA/WENDYDD: 12/30/2019 07:06:59DT: 12/30/2019 07:26:31Conf#: [id number]/DID#: [id number] and Edited by Carly Croft MD On 12/30/19 7:31:23 AM at 0735 PATIENT NAME: RYAN HALL and physical [id number] VAvailable for patient [id number]:[address] [facility]
--- NOTE | 2023-10-05 12:07 | RAD REPORT ---
EXAM DESCRIPTION: CTSpine Lumbar Wo Con10/05/2023 11:49 am CLINICAL HISTORY: Left leg radiculopathy COMPARISON: None TECHNIQUE: Computed axial tomography lumbar spine was obtained with coronal and sagittal reconstruct ion. All CT scans are performed using dose optimization technique as appropriate and may include automated exposure control or mA/KV adjustment according to patient size. FINDINGS: Mild posterior subluxation of L1 on L2. Mild spondylosis Mild spondylosis L2-3 Mild spondylosis L3-4 Mild spondylosis L4-5 and L5-S1. Laminectomy No fracture or dislocation. No high-grade central/foraminal stenosis seen 3.4 centimeter infrarenal abdominal aortic aneurysm unchanged. Followup imaging 3 years recommended IMPRESSION: Negative for a lumbar fracture. No high-grade/foraminal stenosis is seen If patient's symptoms persist MRI would be recommended
[2023-10-05 12:35] LABS: Absolute Lymphocytes (CBC) 1.3 K/uL (0.7-4.9); Hematocrit 34.9 % (39.6-49.0); Lymphocytes % 15.8 % (15.3-44.8); MCV 90.2 fL (80-100); MPV 9.7 fL (7.6-11.3); Platelets 148 thou/uL (152-406); RBC Red Blood Cell Count 3.87 M/uL (4.33-5.43)
[2023-10-05 12:39] LABS: Protime INR 1.15
[2023-10-05 12:52] LABS: Albumin 3.4 g/dL (3.4-5.0); Bilirubin Total 0.7 mg/dL (0.2-1.0); Potassium 3.3 mEq/L (3.5-5.1); Protein, Total 6.6 g/dL (6.4-8.2)
--- NOTE | 2023-10-05 13:26 | EDPHYS ---
Physician Documentation [facility] Name: Ryan Tristan Age: 83 yrs Sex: Male : 1940 Arrival Date: 10/05/2023 Time: 10:54 Bed 5 Private MD: ED Physician Brodie Viera HPI: 10/05 11:32 This 83 yrs old Male presents to ER via Wheelchair with complaints of Low jose Back Pain. 11:32 The patient presents with pain that is acute, with no known mechanism of injury, that jose is chronic, with no known mechanism of injury. The symptoms are located in the low back, lumbar area, left low back and right low back. The pain radiates to the right low back. The problem was sustained from unknown cause. Onset: The symptoms/episode began/occurred 3 week(s) ago. Modifying factors: The patient symptoms are alleviated by nothing, the patient symptoms are aggravated by any movement, movement. Associated signs and symptoms: The patient has no apparent associated signs or symptoms. Severity of symptoms: At their worst the symptoms were moderate, in the emergency department the symptoms are unchanged. The patient has experienced similar episodes in the past, multiple times. Historical: - Allergies: 11:06 No Known Allergies; ll1 - PMHx: 11:06 Hypertension; GERD; Myocardial infarction; Pacemaker; ll1 - PSHx: 11:06 Coronary artery bypass graft; ll1 - Immunization history:: Adult Immunizations up to date. - Social history:: Smoking status: Patient reports the use of cigarette tobacco products, 2 cigarettes/day. - Family history:: not pertinent. ROS: 11:32 Constitutional: Negative for fever, chills, and weight loss, Eyes: Negative for injury, jose pain, redness, and discharge, ENT: Negative for injury, pain, and discharge, Neck: Negative for injury, pain, and swelling, Cardiovascular: Negative for chest pain, palpitations, and edema, Respiratory: Negative for shortness of breath, cough, wheezing, and pleuritic chest pain, Abdomen/GI: Negative for abdominal pain, nausea, vomiting, diarrhea, and constipation, : Negative for injury, bleeding, discharge, and swelling, MS/Extremity: Negative for injury and deformity, Skin: Negative for injury, rash, and discoloration, Neuro: Negative for headache, weakness, numbness, tingling, and seizure, Psych: Negative for depression, anxiety, suicide ideation, homicidal ideation, and hallucinations, Allergy/Immunology: Negative for hives, rash, and allergies, Endocrine: Negative for neck swelling, polydipsia, polyuria, polyphagia, and marked weight changes, 11:32 Back: Positive for decreased range of motion, pain at rest, pain with movement, Exam: 11:33 Constitutional: This is a well developed, well nourished patient who is awake, alert, jose and in no acute distress. Head/Face: Normocephalic, atraumatic. Eyes: Pupils equal round and reactive to light, extra-ocular motions intact. Lids and lashes normal. Conjunctiva and sclera are non-icteric and not injected. Cornea within normal limits. Periorbital areas with no swelling, redness, or edema. ENT: Nares patent. No nasal discharge, no septal abnormalities noted. Tympanic membranes are normal and external auditory canals are clear. Oropharynx with no redness, swelling, or masses, exudates, or evidence of obstruction, uvula midline. Mucous membranes moist. Neck: Trachea midline, no thyromegaly or masses palpated, and no cervical lymphadenopathy. Supple, full range of motion without nuchal rigidity, or vertebral point tenderness. No Meningismus. Chest/axilla: Normal chest wall appearance and motion. Nontender with no deformity. No lesions are appreciated. Cardiovascular: Regular rate and rhythm with a normal S1 and S2. No gallops, murmurs, or rubs. Normal PMI, no JVD. No pulse deficits. Respiratory: Lungs have equal breath sounds bilaterally, clear to auscultation and percussion. No rales, rhonchi or wheezes noted. No increased work of breathing, no retractions or nasal flaring. Abdomen/GI: Soft, non-tender, with normal bowel sounds. No distension or tympany. No guarding or rebound. No evidence of tenderness throughout. Male : Normal genitalia with no discharge or lesions. Skin: Warm, dry with normal turgor. Normal color with no rashes, no lesions, and no evidence of cellulitis. MS/ Extremity: Pulses equal, no cyanosis. Neurovascular intact. Full, normal range of motion. Neuro: Awake and alert, GCS 15, oriented to person, place, time, and situation. Cranial nerves II-XII grossly intact. Motor strength 5/5 in all extremities. Sensory grossly intact. Cerebellar exam normal. Normal gait. Psych: Awake, alert, with orientation to person, place and time. Behavior, mood, and affect are within normal limits. 11:33 Back: pain, that is moderate, ROM is painful, with all movement, normal spinal alignment noted, CVA tenderness, is absent, vertebral tenderness, is not appreciated, muscle spasm, is appreciated in the left low back, left mid back, right mid back and right low back, Vital Signs: 11:15 BP 113 / 56; Pulse 62; Resp 16; Temp 98.1; Pulse Ox 99% ; Weight 84.82 kg; Height 4 ft. ll1 11 in. ; Pain 10/10; 12:30 BP 143 / 53; Pulse 65; Resp 18; Pulse Ox 99% on R/A; db 14:00 BP 146 / 56; Pulse 58; Pulse Ox 99% ; ll1 11:15 Body Mass Index 37.77 (84.82 kg, 149.86 cm) ll1 11:15 Pain Scale: Adult ll1 MDM: 10:57 Patient medically screened. [facility] 11:34 Differential diagnosis: arthritis, strain, sciatica, Herniated disc UTI. Data reviewed: [facility] vital signs, nurses notes, lab test result(s), radiologic studies, CT scan. Consideration of Admission/Observation Escalation of care including admission/observation considered. I considered the following discharge prescriptions or medication management in the emergency department Medications were administered in the Emergency Department. See MAR. Independent interpretation of the following test(s) in the Emergency Department CT Scan: My interpretation is ct lumbar. Test considered but Not performed: MRI: no mri, pm. Historians other than the Patient: patient well informed. Care significantly affected by the following chronic conditions: Hypertension. 10/05 11:29 Order name: CBC with Diff; Complete Time: 13:24 [facility] 10/05 11:29 Order name: Comprehensive Metabolic Panel; Complete Time: 13:24 [facility] 10/05 11:29 Order name: PT-INR; Complete Time: 13:24 [facility] 10/05 11:29 Order name: CT Lumbar Spine Wo Con; Complete Time: 13:24 [facility] Administered Medications: 12:30 Drug: NS 0.9% IV 500 ml IV at bolus once Route: IV; Rate: bolus; Site: right wrist; db 14:12 Follow up: Response: No adverse reaction; IV Status: Completed infusion; IV Intake: as6 500ml 12:30 Drug: NS 0.9% IV 1000 ml IV at 125 ml/hr continuous Route: IV; Rate: 125 ml/hr; Site: db right wrist; 14:13 Follow up: Response: No adverse reaction; IV Status: Order to discontinue infusion; IV as6 Intake: 300ml 12:30 Drug: Ketorolac IVP 15 mg IVP once Route: IVP; Site: right wrist; db 14:12 Follow up: Response: No adverse reaction as6 12:30 Drug: Decadron - Dexamethasone IVP 10 mg IVP once Route: IVP; Site: right wrist; db 14:12 Follow up: Response: No adverse reaction as6 12:30 Drug: fentaNYL (PF) IVP 50 mcg IVP once Route: IVP; Site: right wrist; db 14:12 Follow up: Response: No adverse reaction as6 12:30 Drug: Ondansetron IVP 4 mg IVP once; over 2 minutes Route: IVP; Site: right wrist; db 14:12 Follow up: Response: No adverse reaction as6 12:30 Drug: Diazepam PO 10 mg PO once Route: PO; db 14:12 Follow up: Response: No adverse reaction as6 13:59 Drug: Potassium PO Effervescent Tablet 25 mEq PO once; dissolve in 4 ounces of water or ll1 juice Route: PO; 14:12 Follow up: Response: No adverse reaction as6 Disposition Summary: 10/05/23 13:26 Discharge Ordered Notes: Location: Home jose Problem: new jose Symptoms: have improved jose Condition: Stable jose Diagnosis - Sciatica, right side jose - Sciatica jose - Low back pain jose - Unspecified kidney failure jose - Hypokalemia jose - Spondylolysis, lumbar region jose Followup: jose - With: Private Physician - When: 2 - 3 days - Reason: Recheck today's complaints, Continuance of care, Re-evaluation by your physician Followup: jose - With: Alexandre Sanchez MD - When: 2 - 3 days - Reason: Recheck today's complaints, Re-evaluation by your physician Discharge Instructions: - Discharge Summary Sheet jose - Acute Back Pain, Adult jose - Potassium Content of Foods jose - Musculoskeletal Pain jose - Sciatica jose - Chronic Back Pain, [id number] jose - Sciatica, [id number] [facility] - Chronic Kidney Disease, Adult, [id number] jose - Hypokalemia [facility] - Radicular Pain [facility] Forms: - Medication Reconciliation Form [facility] - Thank You Letter [facility] - Antibiotic Education jose - Prescription Opioid Use jose - Patient Portal Instructions [facility] - Leadership Thank You Letter [facility] Prescriptions: - acetaminophen-codeine 300-30 mg Oral tablet - take 2 tablet ORAL route 4 times per day as needed for pain; 24 tablet; jose Refills: 0, Product Selection Permitted - dexamethasone 2 mg Oral tablet - take 1 tablet ORAL route every 12 hours; 10 tablet; Refills: 0, Product [facility] Selection Permitted - Valium 5 mg Oral Tablet - take 1 tablet ORAL route every 8 hours As needed; 20 tablet; Refills: 0, [facility] Product Selection Permitted - Motrin IB 200 mg Oral tablet - take 1 tablet ORAL route every 6 hours As needed as needed with food; 30 jose tablet; Refills: 0, Product Selection Permitted Signatures: Dispatcher [employer] EDBrodie Oro MD MD cha Lewis, Lynsay, RN RN ll1 Meredith Reynolds RN RN db Jerry Delgado RN as6
--- NOTE | 2023-10-05 13:26 | ER ---
Nurse's Notes [facility] Name: Ryan Tristan Age: 83 yrs Sex: Male : 1940 Arrival Date: 10/05/2023 Time: 10:54 Bed 5 Private MD: Diagnosis: Sciatica, right side;Sciatica;Low back pain;Unspecified kidney failure;Hypokalemia;Spondylolysis, lumbar region Presentation: 10/05 11:07 Chief complaint: Patient states: Low back pain that radiates down L leg since . ll1 No falls or trauma. Coronavirus screen: Client denies travel out of the [place] in the last 14 days. At this time, the client does not indicate any symptoms associated with coronavirus-19. Ebola Screen: Patient denies travel to an Ebola-affected area in the 21 days before illness onset. Initial Sepsis Screen: Does the patient meet any 2 criteria? No. Patient's initial sepsis screen is negative. Does the patient have a suspected source of infection? No. Patient's initial sepsis screen is negative. Risk Assessment: Do you want to hurt yourself or someone else? Patient reports no desire to harm self or others. Onset of symptoms. 11:07 Method Of Arrival: Wheelchair ll1 11:07 Acuity: CRISPIN 3 ll1 Historical: - Allergies: 11:06 No Known Allergies; ll1 - PMHx: 11:06 Hypertension; GERD; Myocardial infarction; Pacemaker; ll1 - PSHx: 11:06 Coronary artery bypass graft; ll1 - Immunization history:: Adult Immunizations up to date. - Social history:: Smoking status: Patient reports the use of cigarette tobacco products, 2 cigarettes/day. - Family history:: not pertinent. Screenin:05 [facility] ED Fall Risk Assessment (Adult) History of falling in the last 3 months, db including since admission No falls in past 3 months (0 pts) Confusion or Disorientation No (0 pts) Intoxicated or Sedated No (0 pts) Impaired Gait No (0 pts) Mobility Assist Device Used No (0 pt) Altered Elimination No (0 pt) Score/Fall Risk Level 0 - 2 = Low Risk Oriented to surroundings, Maintained a safe environment. Abuse screen: Denies threats or abuse. Denies injuries from another. Nutritional screening: No deficits noted. Tuberculosis screening: No symptoms or risk factors identified. Assessment: 12:30 Reassessment: Patient appears in no apparent distress at this time. Patient and/or db family updated on plan of care and expected duration. Pain level reassessed. Patient is alert, oriented x 3, equal unlabored respirations, skin warm/dry/pink. General: Appears in no apparent distress. comfortable, Behavior is calm, cooperative. Pain: Complains of pain in left mid back and back and right low back and left low back and lumbar area. Neuro: Level of Consciousness is awake, alert, obeys commands, Oriented to person, place, time, situation. Respiratory: Airway is patent Respiratory effort is even, unlabored, Respiratory pattern is regular, symmetrical. 14:00 Reassessment: No changes from previously documented assessment. Patient and/or family ll1 updated on plan of care and expected duration. Pain level reassessed. Vital Signs: 11:15 BP 113 / 56; Pulse 62; Resp 16; Temp 98.1; Pulse Ox 99% ; Weight 84.82 kg; Height 4 ft. ll1 11 in. ; Pain 10/10; 12:30 BP 143 / 53; Pulse 65; Resp 18; Pulse Ox 99% on R/A; db 14:00 BP 146 / 56; Pulse 58; Pulse Ox 99% ; ll1 11:15 Body Mass Index 37.77 (84.82 kg, 149.86 cm) ll1 11:15 Pain Scale: Adult ll1 ED Course: 10:57 Patient arrived in ED. rg4 10:57 Brodie Viera MD is Attending Physician. jose 11:06 Arm band placed on. ll1 11:07 Triage completed. ll1 11:15 [place]es, PRAVEEN is Primary Nurse. ll1 11:49 CT Lumbar Spine Wo Con In Process Unspecified. EDMS 12:30 Inserted saline lock: 22 gauge in right wrist, using aseptic technique. Blood collected.db 13:05 Patient has correct armband on for positive identification. Bed in low position. Call db light in reach. Side rails up X 1. Pulse ox on. NIBP on. Warm blanket given. 13:25 Alexandre Sancehz MD is Referral Physician. [facility] 14:13 Provided Education on: rx teaching. as6 14:13 No provider procedures requiring assistance completed. IV discontinued, intact, as6 bleeding controlled, No redness/swelling at site. Pressure dressing applied. Administered Medications: 12:30 Drug: NS 0.9% IV 500 ml IV at bolus once Route: IV; Rate: bolus; Site: right wrist; db 14:12 Follow up: Response: No adverse reaction; IV Status: Completed infusion; IV Intake: as6 500ml 12:30 Drug: NS 0.9% IV 1000 ml IV at 125 ml/hr continuous Route: IV; Rate: 125 ml/hr; Site: db right wrist; 14:13 Follow up: Response: No adverse reaction; IV Status: Order to discontinue infusion; IV as6 Intake: 300ml 12:30 Drug: Ketorolac IVP 15 mg IVP once Route: IVP; Site: right wrist; db 14:12 Follow up: Response: No adverse reaction as6 12:30 Drug: Decadron - Dexamethasone IVP 10 mg IVP once Route: IVP; Site: right wrist; db 14:12 Follow up: Response: No adverse reaction as6 12:30 Drug: fentaNYL (PF) IVP 50 mcg IVP once Route: IVP; Site: right wrist; db 14:12 Follow up: Response: No adverse reaction as6 12:30 Drug: Ondansetron IVP 4 mg IVP once; over 2 minutes Route: IVP; Site: right wrist; db 14:12 Follow up: Response: No adverse reaction as6 12:30 Drug: Diazepam PO 10 mg PO once Route: PO; db 14:12 Follow up: Response: No adverse reaction as6 13:59 Drug: Potassium PO Effervescent Tablet 25 mEq PO once; dissolve in 4 ounces of water or ll1 juice Route: PO; 14:12 Follow up: Response: No adverse reaction as6 Medication: 14:13 VIS not applicable for this client. as6 Intake: 14:12 IV: 500ml; Total: 500ml. as6 14:13 IV: 300ml; Total: 800ml. as6 Outcome: 13:26 Discharge ordered by . jose 14:13 Discharged to home via wheelchair, with family, as6 14:13 Condition: stable 14:13 Discharge instructions given to patient, Instructed on discharge instructions, follow up and referral plans. medication usage, Demonstrated understanding of instructions, follow-up care, medications, Prescriptions given X 4, 14:13 Patient left the ED. as6 Signatures: Dispatcher [employer] Brodie Burgos MD MD cha Garcia, Rubi rg4 Des Neves RN RN ll1 Jerry Delgado RN RN as6 Meredith Reynolds RN RN db
[2023-10-05 14:46] VITALS: BP 146/56; TEMP 98.1; O2SAT 99
== END ==
LOC: ER 10:54
DX: M54.31 Sciatica, right side (principal); E87.6 Hypokalemia; N19 Unspecified kidney failure; M47.896 Other spondylosis, lumbar region; I10 Essential (primary) hypertension; Z95.0 Presence of cardiac pacemaker; Z95.1 Presence of aortocoronary bypass graft; F17.210 Nicotine dependence, cigarettes, uncomplicated
CPT/HCPCS: 85025; 36415; 85610; 80053; 72131; J3010; J1100; J2405; J7040; J7030